=== PATIENT | female | born 1965 | race Caucasian/White ===

== ENCOUNTER 2018-08-24 19:18 | Inpatient (IN) ==
--- NOTE | 2018-08-24 21:04 | ED ---
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 She reports that they started on her buttock area and drained yellow drainage. She reports that she has one on the left lateral thigh that also began a week ago and has not drained. She reports that they are tender to the touch. She incidentally also reports that for the last week she has had a cough and congestion. She reports that the cough was initially streaks of blood. She reports that now the cough is productive of a thick white sputum. Patient reports that she had a leftover prescription for ciprofloxacin and started taking this medication for about the skin lesions in the cough. The patient's past medical history is complicated by having a PICC line in place that was accidentally dislodged 5 days ago. She was not receiving any medication through the PICC line as this was discontinued by her infectious disease doctor in [place] sometime in July. The patient reports that she was supposed to be on antibiotic from May through August 31 related to a discitis and osteomyelitis of her back. She denies having any known fevers. She reports having generalized body aches. She denies having any worsening or recurrent back pain. The patient denies any recent IV drug use. She reports that in the past she was just "experimenting". The patient has a history of diabetes mellitus. She ran out of her diabetic medication yesterday. On review of systems otherwise, the patient denies having any neck pain, chest pain, abdominal pain, vomiting, urinary symptoms, or neurologic symptoms. The patient reports having onset of diarrhea yesterday. She reports that she has had 7 episodes since onset. She denies having any blood in her stool. The patient reports on review of systems that she does have some dyspnea on exertion. Related Data Home Medications Medication Instructions Recorded Confirmed metformin 1,000 mg PO BID 08/24/18 08/24/18 Allergies Allergy/AdvReac Type Severity Reaction Status Date / Time No Known Allergies Allergy Verified 08/24/18 19:39 Review of Systems ROS: all other systems reviewed are negative PMFSH History History Provided By: Patient Family History Family History Other Family history unknown Social History Social History Substance History: Past History Second Hand Smoke Exposure: Yes Smoking Status: Current every day smoker Tobacco Type: Cigarettes Packs Per Day: 0.5 Cigarettes Per Day: 10.0 How Often Do You Have a Drink Containing Alcohol: Never Recent Travel in [facility] within the Last 8 Weeks: No Recent Out of Country Travel within the Last 8 Weeks: No Exam Const General: cooperative, no acute distress and well developed Nutritional Appearance: well nourished Orientation: alert, awake and oriented x3 HENMT Head: normocephalic and atraumatic Nose: no nasal discharge and no epistaxis Mouth: moist mucous membranes Throat: uvula midline and other (Posterior oropharynx is mildly erythematous) Eyes Sclera: normal sclerae Pupils: PERRL Neck Neck: trachea midline and no JVD Resp Effort & Inspection: no use of accessory muscles Auscultation: clear to auscultation bilaterally Cardio Rate: tachycardic (Sinus tachycardia in the low 100s. No pulse deficits to the extremities on simultaneous auscultation and palpation of her radial artery) Rhythm: regular rhythm Heart Sounds: no gallops, murmur (1/6 systolic murmur.) systolic and no rubs GI Inspection: non-distended Palpation: soft, no hepatosplenomegaly, no guarding, not rigid and nontender Auscultation: normal bowel sounds Skin General: dry skin (warm) and other (The patient is noted to have track vigil. The patient is noted to have a palpable nodule along the dorsal aspect of the forearm right side. The patient is noted to have an erythematous firm nodule along the lateral aspect of the left thigh. No Janeway lesions are noted. No Osler's nodes. The patient has healing crusted areas along the buttock area.) Neuro General: alert, awake, oriented x3 and other (Grossly nonfocal) Speech: speech normal Motor: no movement abnormalities noted Extrem General: normal to inspection (2+ pulses in all 4 extremities.), no calf tenderness, no clubbing, no cyanosis and no edema Psych Mood: congruent mood Affect: normal affect Judgment: judgment good Course Initial Documented Vital Signs Temperature 97.8 F 08/24/18 19:34 Pulse Rate 101 H 08/24/18 19:34 Respiratory Rate 20 08/24/18 19:34 Blood Pressure 121/57 L 08/24/18 19:34 Pulse Oximetry 96 08/24/18 19:34 Last Documented Vital Signs Temperature 97.8 F 08/24/18 19:34 Pulse Rate 93 H 08/24/18 23:39 Respiratory Rate 16 08/24/18 23:39 Blood Pressure 100/56 L 08/24/18 23:39 Pulse Oximetry 95 08/24/18 23:39 Medical Decision Making MDM Narrative Medical decision making narrative: During the course of the patient's emergency department visit, the patient's history, examination, and differential diagnosis were reviewed with the patient. The patient was placed on a clinical radiologist with oximetry and frequent blood pressure monitoring. The patient had IV access obtained and blood work sent for analysis. A diagnostic evaluation was started regarding the patient's reported skin lesions, cough, dyspnea on exertion. The patient was initially provided normal saline 1 L IV fluid bolus, Zosyn 3.375 g IV, vancomycin 1 g IV. Diagnostic studies are remarkable for a normal white count at 13.3, hemoglobin 11.5, platelets 428 with 85.7 neutrophils, lymphocytes 7.3, PT PTT within normal limits, chemistries remarkable for sodium of 123, chloride 90, glucose 431 with a normal anion gap, lactic acid 2.4, alk phos 132, cardiac enzymes within normal limits, normal BNP, lipase is slightly elevated at 405. Urinalysis shows 100 protein 10 WBCs, 2 RBCs, 1 squamous epithelial cell, culture not indicated, urine drug screen is negative, chest x-ray shows patchy airspace disease in both the right and the left lungs suspicious for possible septic emboli. A CTA has been ordered. The patient was given regular insulin 9 units subcutaneously, the patient was given a second normal saline 500 mL bolus x1. CTA of the pulmonary arteries reveals multiple masslike consolidative changes throughout both lungs most suspicious for inflammatory process such as septic emboli. The patient will be admitted to the hospital for suspected septic emboli related to endocarditis. The patient's case including history, pertinent physical examination findings, and laboratory studies were discussed with Dr. Andino. It was agreed that the patient would be admitted to the hospitalist service. The patient's results were discussed with the patient, including the plan of care. I explained that further testing and/ or monitoring is indicated based on the patient's history, examination, and/ or laboratory findings. Therefore, I recommended admission for additional evaluation. The patient expressed understanding and was agreeable with this plan. The patient was admitted to the hospital in guarded condition and sent to a bed under the care of the [facility] service. Medical Screen Exam Complete: Yes Emergency Medical Condition: Yes Differential Diagnosis Differential Diagnosis: Bacteremia, versus sepsis, versus endocarditis, versus pneumonia Medical Records Medical records reviewed: Yes I reviewed the patient's medical records. Lab Data Lab results reviewed: Yes I reviewed the patient's lab results. Result diagrams: 08/24/18 21:15 08/24/18 21:15 Lab Results 08/24/18 08/24/18 08/24/18 Range/Units 21:15 21:15 21:15 WBC 13.3 H (4.0-11.0) th/mm3 RBC 4.33 (4.00-5.30) mil/mm3 Hgb 11.5 L (11.6-15.3) gm/dL Hct 35.7 (35.0-46.0) % MCV 82.6 (80.0-100.0) fL MCH 26.7 L (27.0-34.0) pg MCHC 32.3 (32.0-36.0) % RDW 17.3 H (11.6-17.2) % Plt Count 428 (150-450) th/mm3 MPV 7.0 (7.0-11.0) fL Neut % (Auto) 85.7 H (16.0-70.0) % Lymph % (Auto) 7.3 L (9.0-44.0) % Cooper % (Auto) 6.0 (0.0-8.0) % Eos % (Auto) 0.6 (0.0-4.0) % Baso % (Auto) 0.4 (0.0-2.0) % Neut # (Auto) 11.4 H (1.8-7.7) th/mm3 Lymph # (Auto) 1.0 (1.0-4.8) th/mm3 Cooper # (Auto) 0.8 (0.0-0.9) th/mm3 Eos # (Auto) 0.1 (0.0-0.4) th/mm3 Baso # (Auto) 0.0 (0.0-0.2) th/mm3 WBC Differential . Differential Comment Auto diff final PT 10.8 (9.8-11.6) sec INR 1.1 Ratio APTT 28.7 (23.4-31.7) sec Sodium 123 L* (136-145) meq/L Potassium 4.2 (3.5-5.1) meq/L Chloride 90 L (98-107) meq/L Carbon Dioxide 24.7 (21.0-32.0) meq/L Anion Gap 8 (5-15) meq/L BUN 11 (7-18) mg/dL Creatinine 0.87 (0.50-1.00) mg/dL Estimated GFR 69 L (>89) mL/min POC Glucose (68-110) mg/dl Random Glucose 431 H (74-106) mg/dL Lactic Acid (0.4-2.0) mmol/L Calcium 8.5 (8.5-10.1) mg/dL Magnesium 1.8 (1.5-2.5) mg/dL Total Bilirubin 0.6 (0.2-1.0) mg/dL AST 29 (15-37) U/L ALT 41 (10-53) U/L Alkaline Phosphatase 132 H (45-117) U/L Total Creatine Kinase 12 L (26-192) U/L Troponin I Less than 0.02 L (0.02-0.05) ng/mL B-Natriuretic Peptide (0-100) pg/mL Total Protein 7.9 (6.4-8.2) g/dL Albumin 2.2 L (3.4-5.0) g/dL Lipase 405 H (73-393) U/L Urine Color (Yellw/Straw) Urine Clarity (Clear) Urine pH (5.0-8.5) Ur Specific [place] (1.002-1.035) Urine Protein (Neg-Trace) mg/dL Urine Glucose (UA) (Negative) mg/dL Urine Ketones (Negative) mg/dL Urine Occult Blood (Negative) Urine Nitrate (Negative) Urine Bilirubin (Negative) Urine Urobilinogen (Less than 2) mg/dL Ur Leukocyte Esterase (Negative) Urine RBC (0-3) /hpf Urine WBC (0-5) /hpf Ur Squamous Epith Cells (0-5) /hpf Micro UA Comment Ur Microscopic Review Urine Culture Comments Urine Opiates Screen (Neg) Ur Barbiturates Screen (Neg) Ur Amphetamines Screen (Neg) U Benzodiazepines Scrn (Neg) Urine Cocaine Screen (Neg) U Cannabinoids Screen (Neg) 08/24/18 08/24/18 08/24/18 Range/Units 21:15 21:15 21:24 WBC (4.0-11.0) th/mm3 RBC (4.00-5.30) mil/mm3 Hgb (11.6-15.3) gm/dL Hct (35.0-46.0) % MCV (80.0-100.0) fL MCH (27.0-34.0) pg MCHC (32.0-36.0) % RDW (11.6-17.2) % Plt Count (150-450) th/mm3 MPV (7.0-11.0) fL Neut % (Auto) (16.0-70.0) % Lymph % (Auto) (9.0-44.0) % Cooper % (Auto) (0.0-8.0) % Eos % (Auto) (0.0-4.0) % Baso % (Auto) (0.0-2.0) % Neut # (Auto) (1.8-7.7) th/mm3 Lymph # (Auto) (1.0-4.8) th/mm3 Cooper # (Auto) (0.0-0.9) th/mm3 Eos # (Auto) (0.0-0.4) th/mm3 Baso # (Auto) (0.0-0.2) th/mm3 WBC Differential Differential Comment PT (9.8-11.6) sec INR Ratio APTT (23.4-31.7) sec Sodium (136-145) meq/L Potassium (3.5-5.1) meq/L Chloride (98-107) meq/L Carbon Dioxide (21.0-32.0) meq/L Anion Gap (5-15) meq/L BUN (7-18) mg/dL Creatinine (0.50-1.00) mg/dL Estimated GFR (>89) mL/min POC Glucose (68-110) mg/dl Random Glucose (74-106) mg/dL Lactic Acid 2.4 H (0.4-2.0) mmol/L Calcium (8.5-10.1) mg/dL Magnesium (1.5-2.5) mg/dL Total Bilirubin (0.2-1.0) mg/dL AST (15-37) U/L ALT (10-53) U/L Alkaline Phosphatase (45-117) U/L Total Creatine Kinase (26-192) U/L Troponin I (0.02-0.05) ng/mL B-Natriuretic Peptide 39 (0-100) pg/mL Total Protein (6.4-8.2) g/dL Albumin (3.4-5.0) g/dL Lipase (73-393) U/L Urine Color (Yellw/Straw) Urine Clarity (Clear) Urine pH (5.0-8.5) Ur Specific [place] (1.002-1.035) Urine Protein (Neg-Trace) mg/dL Urine Glucose (UA) (Negative) mg/dL Urine Ketones (Negative) mg/dL Urine Occult Blood (Negative) Urine Nitrate (Negative) Urine Bilirubin (Negative) Urine Urobilinogen (Less than 2) mg/dL Ur Leukocyte Esterase (Negative) Urine RBC (0-3) /hpf Urine WBC (0-5) /hpf Ur Squamous Epith Cells (0-5) /hpf Micro UA Comment Ur Microscopic Review Urine Culture Comments Urine Opiates Screen Neg (Neg) Ur Barbiturates Screen Neg (Neg) Ur Amphetamines Screen Neg (Neg) U Benzodiazepines Scrn Neg (Neg) Urine Cocaine Screen Neg (Neg) U Cannabinoids Screen Neg (Neg) 08/24/18 08/24/18 Range/Units 21:24 22:44 WBC (4.0-11.0) th/mm3 RBC (4.00-5.30) mil/mm3 Hgb (11.6-15.3) gm/dL Hct (35.0-46.0) % MCV (80.0-100.0) fL MCH (27.0-34.0) pg MCHC (32.0-36.0) % RDW (11.6-17.2) % Plt Count (150-450) th/mm3 MPV (7.0-11.0) fL Neut % (Auto) (16.0-70.0) % Lymph % (Auto) (9.0-44.0) % Cooper % (Auto) (0.0-8.0) % Eos % (Auto) (0.0-4.0) % Baso % (Auto) (0.0-2.0) % Neut # (Auto) (1.8-7.7) th/mm3 Lymph # (Auto) (1.0-4.8) th/mm3 [place] # (Auto) (0.0-0.9) th/mm3 Eos # (Auto) (0.0-0.4) th/mm3 Baso # (Auto) (0.0-0.2) th/mm3 WBC Differential Differential Comment PT (9.8-11.6) sec INR Ratio APTT (23.4-31.7) sec Sodium (136-145) meq/L Potassium (3.5-5.1) meq/L Chloride (98-107) meq/L Carbon Dioxide (21.0-32.0) meq/L Anion Gap (5-15) meq/L BUN (7-18) mg/dL Creatinine (0.50-1.00) mg/dL Estimated GFR (>89) mL/min POC Glucose 476 H* (68-110) mg/dl Random Glucose (74-106) mg/dL Lactic Acid (0.4-2.0) mmol/L Calcium (8.5-10.1) mg/dL Magnesium (1.5-2.5) mg/dL Total Bilirubin (0.2-1.0) mg/dL AST (15-37) U/L ALT (10-53) U/L Alkaline Phosphatase (45-117) U/L Total Creatine Kinase (26-192) U/L Troponin I (0.02-0.05) ng/mL B-Natriuretic Peptide (0-100) pg/mL Total Protein (6.4-8.2) g/dL Albumin (3.4-5.0) g/dL Lipase (73-393) U/L Urine Color Yellow (Yellw/Straw) Urine Clarity Hazy H (Clear) Urine pH 6.0 (5.0-8.5) Ur Specific [place] 1.020 (1.002-1.035) Urine Protein 100 H (Neg-Trace) mg/dL Urine Glucose (UA) 500 or greater (Negative) mg/dL Urine Ketones Negative (Negative) mg/dL Urine Occult Blood Negative (Negative) Urine Nitrate Negative (Negative) Urine Bilirubin Negative (Negative) Urine Urobilinogen Less than 2 (Less than 2) mg/dL Ur Leukocyte Esterase Negative (Negative) Urine RBC 2 (0-3) /hpf Urine WBC 10 H (0-5) /hpf Ur Squamous Epith Cells 1 (0-5) /hpf Micro UA Comment Culture not ind Ur Microscopic Review Not Reportable Urine Culture Comments Culture not ind Urine Opiates Screen (Neg) Ur Barbiturates Screen (Neg) Ur Amphetamines Screen (Neg) U Benzodiazepines Scrn (Neg) Urine Cocaine Screen (Neg) U Cannabinoids Screen (Neg) Imaging Data Radiologist's impression: Chest X-Ray 08/24/18 20:59 CONCLUSION: Markedly abnormal chest. Considerations include inflammatory process such as septic emboli or metastatic disease. CT scan of the chest with contrast would be of benefit Chest CTA 08/24/18 21:35 CONCLUSION: 1. Multiple masslike consolidative changes throughout both lungs most suspicious for inflammatory process. 2. There is minimal AP window adenopathy. 3. Trace pleural effusion is present on the left. ECG Data Attestation: I personally reviewed and interpreted this ECG as follows: Interpretation: The patient had an EKG done on arrival. The patient's EKG reveals a sinus tachycardia rate of 100, QRS duration is 130 ms with a moderate intraventricular conduction delay, QTC is 402 ms, no acute ST segment elevation per T waves are inverted in V1. Discharge Plan Discharge Disposition Patient Disposition: ED Admit(ED Internal Use Only) Discharge Order Discharge Orders: ED Use Only Admit Order (Routine); Ordered 08/24/18 Ordered By: Zara Das Discharge Details Diagnosis: Septic embolism Physicians Team ED Provider: Zara Das Primary Care Provider: UNKNOWN, Attending Provider: Stephanie Andino Other Providers: Kia Zarate Status ED Status: Admitted Patient
--- NOTE | 2018-08-24 21:16 | XR ---
EXAM DATE: 08/24/2018 9:13 PM EST AGE/SEX: 53 years / Female INDICATIONS: Fever. CLINICAL DATA: This is the patient's initial encounter. Patient reports that signs and symptoms have been present for 1 day and indicates a pain score of 4/10. MEDICAL/SURGICAL HISTORY: Osteomyelitis. Diabetes mellitus type II. Smoker. Discitis. None. COMPARISON: No prior exams available for comparison. FINDINGS: Study is abnormal with patchy airspace disease in both the right and left lungs. There is no pleural effusion. Some of these have a nodular appearance and could either be septic emboli or metastatic dis ease. There is no pleural effusion. The portion of the bony skeleton visualized is unremarkable. CONCLUSION: Markedly abnormal chest. Considerations include inflammatory process such as septic emboli or metasta tic disease. CT scan of the chest with contrast would be of benefit Electronically signed by: Rj Winter MD Board Certified Radiologist 08/24/2018 9:15 PM EST
[2018-08-24 21:34] LABS: Baso % (Auto) 0.4 % (0.0-2.0); Eos # (Auto) 0.1 th/mm3 (0.0-0.4); Eos % (Auto) 0.6 % (0.0-4.0); Hematocrit 35.7 % (35.0-46.0); Hemoglobin 11.5 gm/dL (11.6-15.3); Lymph % (Auto) 7.3 % (9.0-44.0); Mean Corpuscular HGB Conc 32.3 % (32.0-36.0); Mean Corpuscular Hemoglobin 26.7 pg (27.0-34.0); Mean Corpuscular Volume 82.6 fL (80.0-100.0); Mono # (Auto) 0.8 th/mm3 (0.0-0.9); Neut # (Auto) 11.4 th/mm3 (1.8-7.7); Neut % (Auto) 85.7 % (16.0-70.0); Platelet Count 428 th/mm3 (150-450); Red Blood Count 4.33 mil/mm3 (4.00-5.30); Red Cell Distribution Width 17.3 % (11.6-17.2); White Blood Count 13.3 th/mm3 (4.0-11.0)
[2018-08-24] MEDS ORDERED: Vancomycin Inj 1,000 MG in Sodium Chlor 0.9% Inj 250 ML IV.SIG ONE (21:35)
[2018-08-24] MEDS ORDERED: Sod Chloride 0.9% Inj 1,000 ML IV.SIG ONE (21:35)
[2018-08-24] MEDS ORDERED: Piperacil/Tazo 3.375 GM Premix 3.375 GM/50 ML PIGGYBACK IV.SIG ONE (21:35)
[2018-08-24 21:44] LABS: Activated Partial Thrombo Time 28.7 sec (23.4-31.7); INR 1.1 Ratio; Prothrombin Time 10.8 sec (9.8-11.6)
[2018-08-24 21:50] LABS: Bilirubin,Urine Negative (Negative); Clarity,Urine Hazy (Clear); Color,Urine Yellow (Yellw/Straw); Glucose,Urine (UA) 500 or Greater mg/dL (Negative); Leukocyte Esterase,Urine Negative (Negative); Nitrite,Urine Negative (Negative); Squamous Epithelial Cell,Urine 1 /hpf (0-5)
[2018-08-24 21:53] LABS: Amphetamine Screen,Urine Neg (Neg); Barbiturate Screen,Urine Neg (Neg); Cannabinoid Screen,Urine Neg (Neg); Cocaine Screen,Urine Neg (Neg)
[2018-08-24 21:58] LABS: Opiate Screen,Urine Neg (Neg)
[2018-08-24 22:17] LABS: Alanine Aminotransferase 41 U/L (10-53); Albumin 2.2 g/dL (3.4-5.0); Alkaline Phosphatase 132 U/L (45-117); Anion Gap 8 meq/L (5-15); Aspartate Aminotransferase 29 U/L (15-37); Blood Urea Nitrogen 11 mg/dL (7-18); Calcium 8.5 mg/dL (8.5-10.1); Carbon Dioxide 24.7 meq/L (21.0-32.0); Chloride 90 meq/L (98-107); Glomerular Filtration Rate 69 mL/min (>89); Glucose,Random 431 mg/dL (74-106); Lipase 405 U/L (73-393); Magnesium 1.8 mg/dL (1.5-2.5); Potassium 4.2 meq/L (3.5-5.1); Total Protein 7.9 g/dL (6.4-8.2)
[2018-08-24 22:19] LABS: Creatine Kinase 12 U/L (26-192)
[2018-08-24 22:22] LABS: Sodium 123 meq/L (136-145)
[2018-08-24] MEDS ORDERED: Sodium Chlor 0.9% Inj 500 ML IV.SIG ONE (22:29)
--- NOTE | 2018-08-24 22:56 | CT ---
EXAM DATE: 08/24/2018 10:41 PM EST AGE/SEX: 53 years / Female INDICATIONS: Cough, abnormal chest xray. CLINICAL DATA: This is the patient's initial encounter. Patient reports that signs and symptoms have been present for 1 day and indicates a pain score of 4/10. MEDICAL/SURGICAL HISTORY: Diabetes. Osteomyelitis. Hysterectomy. Tubal ligation. RADIATION DOSE: 7.25 CTDI (mGy) COMPARISON: No prior exams available for comparison. TECHNIQUE: Volumetric scanning was performed using a multi-row detector CT scanner during bolus infu armando of 75 ml Omnipaque 350 (iohexol) nonionic water-soluble contrast as a single exam dose. The handy a was post processed with a variety of visualization algorithms including full volume maximum intensi ty projection and sliding thin slab reformation. Using automated exposure control and adjustment of t he mA and/or kV according to patient size, radiation dose was kept as low as reasonably achievable to obtain optimal diagnostic quality images. DICOM format image data is available electronically for r eview and comparison. FINDINGS: Multiple masslike consolidative changes are seen throughout both lungs some of which contain central cavitation this is suspicious for septic inflammatory process. There is no evidence for central pulmonary emboli. Minimal AP window adenopathy is present. Trace left pleural effusion. No pleural effusion on the right. There is no bony abnormality appreciated. CONCLUSION: 1. Multiple masslike consolidative changes throughout both lungs most suspicious for inflammatory pr ocess. 2. There is minimal AP window adenopathy. 3. Trace pleural effusion is present on the left. Electronically signed by: Rj Winter MD Board Certified Radiologist 08/24/2018 10:54 PM EST
[2018-08-24] MEDS ORDERED: Bisacodyl 10 MG Supp RECTAL PRN (23:22)
[2018-08-24] MEDS ORDERED: Acetaminophen 325 MG Tablet PO PRN (23:22)
[2018-08-24] MEDS ORDERED: Vancomycin Consult Pharmacy OTHER PRN (23:24)
[2018-08-24] MEDS ORDERED: Dextrose 50% in Water 50 ML Vial IV.PUSH PRN (23:27)
[2018-08-24] MEDS ORDERED: Sod Chloride 0.9% Inj 1,000 ML IV.CONT SCH (23:30)
--- NOTE | 2018-08-24 23:40 | P.HP ---
History of Present Illness Service: [facility] Primary Care Physician: UNKNOWN History of Present Illness: 53-year-old female with a past medical history significant for diabetes mellitus , IV drug abuse and recent treatment of thoracic spine osteomyelitis/discitis presents to the emergency department for further evaluation. The patient reports that in April 2018 she was diagnosed and treated for osteomyelitis and discitis of the thoracic spine. She believes she was treated with vancomycin. A PICC line was placed and she was supposed to be on antibiotic infusion until 08/31/18 however secondary to renal failure her vancomycin was discontinued. She was unable to see her infectious disease doctor until 08/27 because he is out of town and came to [place] for further evaluation. The patient also complains of red, painful, erythematous nodules on the left leg, right forearm and in the labial and buttock regions. She denies any fevers/ chills. Denies chest pain but endorses shortness of breath and a cough productive of thick white sputum. Reports that on Thursday her PICC line fell out. The patient reports last IV drug use was heroin yesterday. No abdominal pain. No nausea/vomiting/diarrhea. No focal neurologic deficits. Inpatient Certification: I certify that the inpatient services were ordered in accordance with Medicare regulations governing the order. This includes certification that hospital inpatient services are reasonable and necessary and in the case of services not specified as inpatient-only under 42 CFR 419.22(n), that they are appropriately provided as inpatient services in accordance to with the 2-midnight benchmark under 43 CFR 412.3(e) Review of Systems All other systems reviewed negative except as stated in [facility] - History History Provided By: Patient - Medical History Medical History: Medical History (Last Reviewed 08/24/18 @ 23:30 by Stephanie Andino MD) Diabetes Discitis H/O: hysterectomy Osteomyelitis - Surgical History Surgical History: Surgical History (Last Reviewed 08/24/18 @ 23:30 by Stephanie Andino MD) History of knee surgery History of tubal ligation - Family History Family History: Family History (Last Updated 08/24/18 @ 23:30 by Stephanie Andino MD) Other Family history unknown - Social History I have reviewed the patient's Social History: Yes - Tobacco History Second Hand Smoke Exposure: Yes Tobacco Use In Past 30 Days: Yes Smoking Status: Current every day smoker Tobacco Type: Cigarettes Packs Per Day: 0.5 Cigarettes Per Day: 10.0 - Alcohol History How Often Do You Have a Drink Containing Alcohol: Never - Substance Use History Substance History: Past History - Travel History Recent Travel in the [place] Within the Last 8 Weeks: No Recent Travel Out of the Country Within the Last 8 Weeks: No - Immunization History Tetanus Immunization: Unsure Medications and Allergies Allergies Allergy/AdvReac Type Severity Reaction Status Date / Time No Known Allergies Allergy Verified 08/24/18 19:39 Home Medications Medication Instructions Recorded Confirmed Type metformin 1,000 mg PO BID 08/24/18 08/24/18 History Exam Vital signs: Vital Signs 08/24/18 19:34 08/24/18 21:01 08/24/18 21:15 Temperature 97.8 F Pulse Rate 101 H 103 H Respiratory Rate 20 16 Blood Pressure 121/57 L 109/59 L Pulse Oximetry 96 94 L 95 Intake & Output 08/24/18 08/24/18 08/25/18 06:59 18:59 06:59 Intake Total 1050 / 1050 Balance 1050 / 1050 Weight 63.503 kg Intake: IV 1050 / 1050 Zosyn 3.375 GM Premix 3.375 gm 50 / 50 In 50 ml @ 100 mls/hr IV.SIG ONCE ONE Rx#:[id number] NS Inj 1,000 ML @ Wide Open IV. 1000 / 1000 SIG BOLUS ONE Rx#:[id number] Narrative: Gen.: No acute distress Head: Normocephalic. Atraumatic. EENT: Pupils equal round and reactive to light. Nose without drainage. Airway intact. Throat without injection. Cardiovascular: Regular rate and rhythm. No murmurs, rubs or gallops. Respiratory: Lungs clear to auscultation bilaterally. No wheezes or rhonchi. Abdomen: Soft, nontender, nondistended. No peritoneal signs. Musculoskeletal: No gross deformities. No edema. Skin: Multiple, painful erythematous nodules of the right forearm, left lower extremity and labia/buttock Neuro: Sensory and motor grossly intact. Cranial nerves II through XII grossly intact. Results - Labs CBC & Chem 7: 08/24/18 21:15 08/24/18 21:15 Labs: Laboratory Results - last 24 hr 08/24/18 08/24/18 08/24/18 21:15 21:15 21:15 WBC 13.3 H RBC 4.33 Hgb 11.5 L Hct 35.7 MCV 82.6 MCH 26.7 L MCHC 32.3 RDW 17.3 H Plt Count 428 MPV 7.0 Neut % (Auto) 85.7 H Lymph % (Auto) 7.3 L [place] % (Auto) 6.0 Eos % (Auto) 0.6 Baso % (Auto) 0.4 Neut # (Auto) 11.4 H Lymph # (Auto) 1.0 [place] # (Auto) 0.8 Eos # (Auto) 0.1 Baso # (Auto) 0.0 WBC Differential . Differential Comment Auto diff final PT 10.8 INR 1.1 APTT 28.7 Sodium 123 L* Potassium 4.2 Chloride 90 L Carbon Dioxide 24.7 Anion Gap 8 BUN 11 Creatinine 0.87 Estimated GFR 69 L POC Glucose Random Glucose 431 H Lactic Acid Calcium 8.5 Magnesium 1.8 Total Bilirubin 0.6 AST 29 ALT 41 Alkaline Phosphatase 132 H Total Creatine Kinase 12 L Troponin I Less than 0.02 L B-Natriuretic Peptide Total Protein 7.9 Albumin 2.2 L Lipase 405 H Urine Color Urine Clarity Urine pH Ur Specific [place] Urine Protein Urine Glucose (UA) Urine Ketones Urine Occult Blood Urine Nitrate Urine Bilirubin Urine Urobilinogen Ur Leukocyte Esterase Urine RBC Urine WBC Ur Squamous Epith Cells Micro UA Comment Ur Microscopic Review Urine Culture Comments Urine Opiates Screen Ur Barbiturates Screen Ur Amphetamines Screen U Benzodiazepines Scrn Urine Cocaine Screen U Cannabinoids Screen 08/24/18 08/24/18 08/24/18 21:15 21:15 21:24 WBC RBC Hgb Hct MCV MCH MCHC RDW Plt Count MPV Neut % (Auto) Lymph % (Auto) [place] % (Auto) Eos % (Auto) Baso % (Auto) Neut # (Auto) Lymph # (Auto) [place] # (Auto) Eos # (Auto) Baso # (Auto) WBC Differential Differential Comment PT INR APTT Sodium Potassium Chloride Carbon Dioxide Anion Gap BUN Creatinine Estimated GFR POC Glucose Random Glucose Lactic Acid 2.4 H Calcium Magnesium Total Bilirubin AST ALT Alkaline Phosphatase Total Creatine Kinase Troponin I B-Natriuretic Peptide 39 Total Protein Albumin Lipase Urine Color Urine Clarity Urine pH Ur Specific [place] Urine Protein Urine Glucose (UA) Urine Ketones Urine Occult Blood Urine Nitrate Urine Bilirubin Urine Urobilinogen Ur Leukocyte Esterase Urine RBC Urine WBC Ur Squamous Epith Cells Micro UA Comment Ur Microscopic Review Urine Culture Comments Urine Opiates Screen Neg Ur Barbiturates Screen Neg Ur Amphetamines Screen Neg U Benzodiazepines Scrn Neg Urine Cocaine Screen Neg U Cannabinoids Screen Neg 08/24/18 08/24/18 21:24 22:44 WBC RBC Hgb Hct MCV MCH MCHC RDW Plt Count MPV Neut % (Auto) Lymph % (Auto) [place] % (Auto) Eos % (Auto) Baso % (Auto) Neut # (Auto) Lymph # (Auto) [place] # (Auto) Eos # (Auto) Baso # (Auto) WBC Differential Differential Comment PT INR APTT Sodium Potassium Chloride Carbon Dioxide Anion Gap BUN Creatinine Estimated GFR POC Glucose 476 H* Random Glucose Lactic Acid Calcium Magnesium Total Bilirubin AST ALT Alkaline Phosphatase Total Creatine Kinase Troponin I B-Natriuretic Peptide Total Protein Albumin Lipase Urine Color Yellow Urine Clarity Hazy H Urine pH 6.0 Ur Specific [place] 1.020 Urine Protein 100 H Urine Glucose (UA) 500 or greater Urine Ketones Negative Urine Occult Blood Negative Urine Nitrate Negative Urine Bilirubin Negative Urine Urobilinogen Less than 2 Ur Leukocyte Esterase Negative Urine RBC 2 Urine WBC 10 H Ur Squamous Epith Cells 1 Micro UA Comment Culture not ind Ur Microscopic Review Not Reportable Urine Culture Comments Culture not ind Urine Opiates Screen Ur Barbiturates Screen Ur Amphetamines Screen U Benzodiazepines Scrn Urine Cocaine Screen U Cannabinoids Screen - Imaging Impressions Chest X-Ray 08/24/18 20:59 CONCLUSION: Markedly abnormal chest. Considerations include inflammatory process such as septic emboli or metastatic disease. CT scan of the chest with contrast would be of benefit Chest CTA 08/24/18 21:35 CONCLUSION: 1. Multiple masslike consolidative changes throughout both lungs most suspicious for inflammatory process. 2. There is minimal AP window adenopathy. 3. Trace pleural effusion is present on the left. Caprini VTE Risk Assessment Caprini VTE Risk Assessment: No/Low Risk (score <= 1) Caprini Risk Assessment Model: Point Value = 1 Point Value = 2 Point Value = 3 Point Value = 5 Age 41-60 Minor surgery BMI > 25 kg/m2 Swollen legs Varicose veins or History of unexplained or recurrent spontaneous Oral contraceptives or hormone replacement Sepsis (< 1 month) Serious lung disease, including pneumonia (< 1 month) Abnormal pulmonary function Acute myocardial infarction Congestive heart failure (< 1 month) History of inflammatory bowel disease Medical patient at bed rest Age 61-74 Arthroscopic surgery Major open surgery (> 45 min) Laparoscopic surgery (> 45 min) Malignancy Confined to bed (> 72 hours) Immobilizing plaster cast Central venous access Age >= 75 History of VTE Family history of VTE Factor V Leiden Prothrombin [id number] Lupus anticoagulant Anticardiolipin antibodies Elevated serum homocysteine Heparin-induced thrombocytopenia Other congenital or acquired thrombophilia Stroke (< 1 month) Elective arthroplasty Hip, pelvis, or leg fracture Acute spinal cord injury (< 1 month) Prophylaxis Regimen: Total Risk Factor Score Risk Level Prophylaxis Regimen 0-1 Low Early ambulation 2 Moderate Order ONE of the following: *Sequential Compression Device (SCD) *Heparin 5000 units SQ BID 3-4 Higher Order ONE of the following medications: *Heparin 5000 units SQ TID *Enoxaparin/Lovenox 40 mg SQ daily (WT < 150 kg, CrCl > 30 mL/min) *Enoxaparin/Lovenox 30 mg SQ daily (WT < 150 kg, CrCl > 10-29 mL/min) *Enoxaparin/Lovenox 30 mg SQ BID (WT < 150 kg, CrCl > 30 mL/min) AND/OR *Sequential Compression Device (SCD) 5 or more Highest Order ONE of the following medications: *Heparin 5000 units SQ TID (Preferred with Epidurals) *Enoxaparin/Lovenox 40 mg SQ daily (WT < 150 kg, CrCl > 30 mL/min) *Enoxaparin/Lovenox 30 mg SQ daily (WT < 150 kg, CrCl > 10-29 mL/min) *Enoxaparin/Lovenox 30 mg SQ BID (WT < 150 kg, CrCl > 30 mL/min) AND *Sequential Compression Device (SCD) Assessment and Plan - Plan Assessment/plan: 1. Sepsis/? Endocarditis/osteomyelitis/discitis Patient reports diagnosis of osteomyelitis/discitis of the thoracic spine in April 2018. Currently endorses back pain but denies any neurologic deficits Chest CT showed multiple masslike consolidative changes throughout both lungs concerning for endocarditis Blood cultures pending Echo pending Vancomycin/Zosyn Infectious disease consulted, appreciate assistance 2. Diabetes mellitus/hyperglycemia Patient reports she was diagnosed with type 2 diabetes mellitus in April 2018 Takes metformin at home Blood glucose 476 Sliding-scale insulin Monitor blood glucose 3. IV drug abuse Patient admits to doing IV heroin although states that she "does not do it a lot " Last use yesterday Cessation counseling provided 4. Hyponatremia Corrected sodium 132 Monitor FEN Diabetic diet Electrolytes: As above NS at 70 cc/hour
[2018-08-25] MEDS: Ketorolac Inj 30 MG/ML (IVP) Vial IV.PUSH ONE ×2 (03:09→03:29)
[2018-08-25] MEDS: Piperacil/Tazo 3.375 GM Premix 3.375 GM/50 ML PIGGYBACK IV.SIG SCH ×4 (03:34→21:13)
[2018-08-25 05:41] LABS: Baso % (Auto) 0.4 % (0.0-2.0); Eos # (Auto) 0.1 th/mm3 (0.0-0.4); Eos % (Auto) 0.9 % (0.0-4.0); Hematocrit 28.4 % (35.0-46.0); Hemoglobin 10.1 gm/dL (11.6-15.3); Lymph # (Auto) 1.2 th/mm3 (1.0-4.8); Lymph % (Auto) 9.9 % (9.0-44.0); Mean Corpuscular HGB Conc 35.4 % (32.0-36.0); Mean Corpuscular Hemoglobin 28.5 pg (27.0-34.0); Mean Corpuscular Volume 80.5 fL (80.0-100.0); Mean Platelet Volume 6.5 fL (7.0-11.0); Mono # (Auto) 0.9 th/mm3 (0.0-0.9); Mono % (Auto) 7.3 % (0.0-8.0); Neut # (Auto) 9.6 th/mm3 (1.8-7.7); Neut % (Auto) 81.5 % (16.0-70.0); Platelet Count 380 th/mm3 (150-450); Red Blood Count 3.53 mil/mm3 (4.00-5.30); Red Cell Distribution Width 17.4 % (11.6-17.2); White Blood Count 11.7 th/mm3 (4.0-11.0)
[2018-08-25 06:00] LABS: Anion Gap 5 meq/L (5-15); Blood Urea Nitrogen 6 mg/dL (7-18); Calcium 8.1 mg/dL (8.5-10.1); Carbon Dioxide 26.8 meq/L (21.0-32.0); Chloride 102 meq/L (98-107); Glomerular Filtration Rate Greater Than 89 mL/min (>89); Glucose,Random 235 mg/dL (74-106); Potassium 3.9 meq/L (3.5-5.1); Sodium 134 meq/L (136-145)
--- NOTE | 2018-08-25 09:12 | P.PNIM ---
Subjective Interval history: Follow-up sepsis. Patient complaining of multiple skin eruptions Physical Exam Vital signs: Vital Signs 08/24/18 19:34 08/24/18 21:01 08/24/18 21:15 Temperature 97.8 F Pulse Rate 101 H 103 H Respiratory Rate 20 16 Blood Pressure 121/57 L 109/59 L Pulse Oximetry 96 94 L 95 08/24/18 23:39 08/25/18 01:00 08/25/18 02:20 Temperature 98.6 F Pulse Rate 93 H 89 85 Respiratory Rate 16 16 16 Blood Pressure 100/56 L 118/55 L 128/68 Pulse Oximetry 95 94 L 96 08/25/18 04:46 08/25/18 08:00 Temperature 97.7 F Pulse Rate 81 80 Respiratory Rate 16 Blood Pressure 120/63 Pulse Oximetry 98 Intake & Output 08/24/18 08/25/18 08/25/18 18:59 06:59 18:59 Intake Total 1850 / 1850 Balance 1850 / 1850 Weight 60.9 kg Intake: IV 1849 1850 Zosyn 3.375 GM Premix 3.375 gm 100 / 100 In 50 ml @ 100 mls/hr IV.SIG Q6H ROSEANNA Rx#:[id number] NS Inj 1,000 ML @ Wide Open IV. 1000 / 1000 SIG BOLUS ONE Rx#:[id number] NS Inj 500 ML @ Wide Open IV. 500 / 500 SIG BOLUS ONE Rx#:[id number] Vancomycin Inj 1,000 MG In NS 250 / 250 Inj 250 ML @ 250 mls/hr IV.SIG ONCE ONE Rx#:[id number] Other: Date of Last Bowel Movement 08/24/18 Weight On Admission 60.9 kg Narrative: Gen.: No acute distress Cardiovascular: Regular rate and rhythm. No murmurs, rubs or gallops. Respiratory: Lungs clear to auscultation bilaterally. No wheezes or rhonchi. Abdomen: Soft, nontender, nondistended. No peritoneal signs. Musculoskeletal: No gross deformities. No edema. Skin: Multiple, painful erythematous nodules of the right forearm, left lower extremity and labia/buttock Neuro: Sensory and motor grossly intact. Cranial nerves II through XII grossly intact. Results Labs CBC & Chem 7: 08/25/18 05:24 08/25/18 05:24 Labs: Microbiology 08/24/18 21:10 Nasal Wash Influenza Types A,B Antigen - Final Negative for FLU A and B antigen Infection due to influenza A or B cannot be ruled out since the antigen present in the sample may be below the detection limit of the test. Imaging Imaging: ITS Impressions Chest X-Ray 08/24/18 20:59 CONCLUSION: Markedly abnormal chest. Considerations include inflammatory process such as septic emboli or metastatic disease. CT scan of the chest with contrast would be of benefit Chest CTA 08/24/18 21:35 CONCLUSION: 1. Multiple masslike consolidative changes throughout both lungs most suspicious for inflammatory process. 2. There is minimal AP window adenopathy. 3. Trace pleural effusion is present on the left. Assessment and Plan Plan 1. Sepsis/? Endocarditis/osteomyelitis/discitis Patient reports diagnosis of osteomyelitis/discitis of the thoracic spine in April 2018. Currently endorses back pain but denies any neurologic deficits Chest CT showed multiple masslike consolidative changes throughout both lungs concerning for septic inflammatory process Blood cultures pending Echo pending Vancomycin/Zosyn Infectious disease consulted, appreciate assistance 2. Diabetes mellitus/hyperglycemia Patient reports she was diagnosed with type 2 diabetes mellitus in April 2018 Takes metformin at home, will resume tomorrow 2 days after contrast Blood glucose 476 Sliding-scale insulin Monitor blood glucose 3. IV drug abuse Patient admits to doing IV heroin although states that she "does not do it a lot " Last use day prior to admission Cessation counseling provided Discussed with family, patient was abusing fentanyl and heroin. Will avoid narcotics. Hydroxyzine for anxiety and Ativan for withdrawal symptoms 4. Hyponatremia Corrected sodium 132 Monitor FEN Diabetic diet Electrolytes: As above Discontinue IV hydration patient has adequate p.o.
[2018-08-25] MEDS: Insulin NovoLOG Aspart Correctional Sugar Inj SQ SCH ×4 (10:51→20:31)
[2018-08-25] MEDS: Vancomycin Inj 1,000 MG in Sodium Chlor 0.9% Inj 250 ML IV.SIG SCH ×2 (12:06→22:52)
[2018-08-25] MEDS ORDERED: Naloxone Inj 0.4 MG/ML Vial IV.PUSH PRN (13:59)
[2018-08-25] MEDS ORDERED: Ketorolac Inj 30 MG/ML (IVP) Vial IV.PUSH PRN ×2 (13:59)
[2018-08-25] MEDS ORDERED: LORazepam 0.5 MG Tablet PO PRN (13:59)
[2018-08-25] MEDS: Ketorolac Inj 30 MG/ML (IVP) Vial IV.PUSH PRN ×3 (16:22→22:52)
[2018-08-25] MEDS: LORazepam 0.5 MG Tablet PO PRN ×2 (16:24→22:51)
--- NOTE | 2018-08-25 18:02 | ECHRPT ---
Indication: POSS SEPSIS, ENDOCARDITIS CONCLUSIONS Normal left ventricular size. Wall thickness is normal. The left ventricular sytolic function is normal with an estimalted ejection fraction in the range of 60-65%. mild mitral valve regurgitation BP: / HR: Rhythm: Sinus MEASUREMENTS (Male / Female) Normal Values Technical Quality:Fair 2D ECHO LV Diastolic Diameter PLAX 4.8 cm 4.2 - 5.9 / 3.9 - 5.3 cm LV Systolic Diameter PLAX 3.4 cm IVS Diastolic Thickness 0.7 cm 0.6 - 1.0 / 0.6 - 0.9 cm LVPW Diastolic Thickness 0.8 cm 0.6 - 1.0 / 0.6 - 0.9 cm LV Relative Wall Thickness 0.3 RV Internal Dim ED PLAX 3.1 cm LVOT Diameter 2.0 cm Aortic Root Diameter 2.4 cm LA Systolic Diameter LX 3.6 cm 3.0 - 4.0 / 2.7 - 3.8 cm M-MODE AV Cusp Separation MM 2.2 cm DOPPLER AV Peak Velocity 150.0 cm/s AV Peak Gradient 9.0 mmHg AV Mean Gradient 4.0 mmHg AV Velocity Time Integral 29.3 cm LVOT Peak Velocity 106.0 cm/s LVOT Peak Gradient 4.5 mmHg LVOT Velocity Time Integral 22.1 cm AV Area Cont Eq vti 2.4 cm AV Area Cont Eq pk 2.2 cm Mitral E Point Velocity 88.4 cm/s Mitral A Point Velocity 74.0 cm/s Mitral E to A Ratio 1.2 LV E' Lateral Velocity 13.3 cm/s Mitral E to LV E' Lateral Ratio 6.6 LV E' Septal Velocity 8.7 cm/s Mitral E to LV E' Septal Ratio 10.2 TR Peak Velocity 246.0 cm/s TR Peak Gradient 24.2 mmHg Right Atrial Pressure 10.0 mmHg Pulmonary Artery Systolic Pressu 34.2 mmHg Right Ventricular Systolic Press 34.2 mmHg PV Peak Velocity 72.9 cm/s PV Peak Gradient 2.1 mmHg FINDINGS LEFT VENTRICLE Normal left ventricular size. Wall thickness is normal. The left ventricular systolic function is normal with an estimated ejection fraction in the range of 60-65%. RIGHT VENTRICLE Normal right ventricular size and systolic function. LEFT ATRIUM The left atrial size is normal. RIGHT ATRIUM The right atrial size is normal. ATRIAL SEPTUM Normal atrial septal thickness without atrial level shunting by limited color doppler interrogation. AORTA The aortic root and proximal ascending aorta are normal in size on limited imaging. MITRAL VALVE Structurally normal mitral valve. No mitral valve stenosis or regurgitation. AORTIC VALVE Trileaflet aortic valve. No aortic valve stenosis or regurgitation. TRICUSPID VALVE Structurally normal tricuspid valve. No tricuspid valve stenosis or regurgitation. PULMONARY VALVE No pulmonary valve regurgitation or stenosis. VESSELS The inferior vena cava is normal in size. PERICARDIUM No pericardial effusion. Demetri Zarate MD, FACC, [facility] [place] ([place]ically Signed[place] Final Date:25 August 2018 18:01
--- NOTE | 2018-08-25 18:53 | P.CONID ---
History of Present Illness Service: ID Consult date: 08/25/18 Requesting Physician: Lore Trejo Reason for Consult: septic emboli Primary Care Provider: UNKNOWN History of Present Illness: 53 yo F denies IV drug use but from the history its clearly positive IV drug use she c/o multiple skin lesions that have been recurring over the last week. Recent h/o PICC line Patient reports that she was supposed to be on antibiotic from May through August 31 related to a discitis and osteomyelitis of her back. She denies having any known fevers. SHe seeningy was not compliant with her abx SHe is on zosyn and vancomycin blood cultures negative @ [address] chest showed multiple lesions cw septic emboli Review of Systems All other systems reviewed negative except as stated in HPI PMFSH - History History Provided By: Patient - Medical History Medical History: Medical History (Last Reviewed 08/26/18 @ 06:59 by Kia Zarate MD) Diabetes Discitis H/O: hysterectomy Osteomyelitis - Surgical History Surgical History: Surgical History (Last Reviewed 08/26/18 @ 06:59 by Kia Zarate MD) History of knee surgery History of tubal ligation - Family History Family History: Family History (Last Reviewed 08/26/18 @ 06:59 by Kia Zarate MD) Other Family history unknown - Social History I have reviewed the patient's Social History: Yes - Tobacco History Second Hand Smoke Exposure: Yes Tobacco Use In Past 30 Days: Yes Smoking Status: Current every day smoker Tobacco Type: Cigarettes Packs Per Day: 0.5 Cigarettes Per Day: 10.0 - Alcohol History How Often Do You Have a Drink Containing Alcohol: Never - Substance Use History Substance History: Past History - Travel History Recent Travel in the [place] Within the Last 8 Weeks: No Recent Travel Out of the Country Within the Last 8 Weeks: No - Immunization History Tetanus Immunization: Unsure Medications and Allergies Active Medications: Active Medications Acetaminophen (Tylenol) 650 mg PO Q4H PRN PRN Reason: Temp > 100.4 Al Hydroxide/Mg Hydroxide (Milk Of Magnesia Liq) 30 ml PO Q12H PRN PRN Reason: Mild Constipation Bisacodyl (Dulcolax Supp) 10 mg RECTAL DAILY PRN PRN Reason: SEVERE CONSITIPATION Dextrose (D50w Vial) 50 ml IV.PUSH UNSCH PRN PRN Reason: PER HYPOGLYCEMIA PROTOCOL Glucagon (Glucagon Inj) 1 mg OTHER PRN PRN PRN Reason: for Hypoglycemia Protocol Hydroxyzine HCl (Atarax) 25 mg PO Q8HR PRN PRN Reason: ANXIETY Last Admin: 08/25/18 16:28 Dose: 25 mg Piperacillin/Tazobactam/Dextrose (Zosyn 3.375 Gm Premix) 3.375 gm in 50 mls @ 100 mls/hr IV.SIG Q6H ROSEANNA Last Admin: 08/25/18 16:32 Dose: 100 mls/hr Vancomycin HCl 1,000 mg/ (Sodium Chloride) 250 mls @ 250 mls/hr IV.SIG Q12H ROSEANNA Last Infusion: 08/25/18 13:10 Dose: Infused Insulin Aspart (Novolog Insulin Correctional Sugar Inj) 0 unit SQ ACHS ROSEANNA; Protocol Last Admin: 08/25/18 16:45 Dose: 4 unit Ketorolac Tromethamine (Toradol Inj) 15 mg IV.PUSH Q6H PRN PRN Reason: PAIN 6-10;IF UNABLE TO TAKE PO Stop: 08/30/18 13:58 Ketorolac Tromethamine (Toradol Inj) 30 mg IV.PUSH Q6H PRN PRN Reason: BREAKTHROUGH PAIN Stop: 08/30/18 13:58 Last Admin: 08/25/18 16:22 Dose: 30 mg Lactulose (Lactulose Liq) 30 ml PO DAILY PRN PRN Reason: SEVERE CONSITIPATION Lorazepam (Ativan) 0.5 mg PO Q6H PRN PRN Reason: withdrawal symptoms/agitation Last Admin: 08/25/18 16:24 Dose: 0.5 mg Miscellaneous Information ([facility] Ordered Lab Info) 0 each OTHER ONCE ONE Stop: 08/26/18 10:46 Naloxone HCl (Narcan Inj) 0.4 mg IV.PUSH UNSCH PRN PRN Reason: SEE LABEL COMMENTS Nicotine (Habitrol 21 Mg Patch.24 Hr) 1 patch T-DERMAL DAILY [facility] Ondansetron HCl (Zofran Inj) 4 mg IV.PUSH Q6H PRN PRN Reason: NAUSEA OR VOMITING Pharmacy Profile Note (Vancomycin Consult Pharmacy) 1 each OTHER UNSCH PRN PRN Reason: Pharmacy to dose Sennosides (Senokot) 17.2 mg PO Q12H PRN PRN Reason: Moderate Constipation Sodium Chloride (Ns Flush) 2 ml IV.FLUSH BID ROSEANNA Last Admin: 08/25/18 12:06 Dose: Not Given Sodium Chloride (Ns Flush) 2 ml IV.FLUSH PRN PRN PRN Reason: FLUSH AFTER USING IV ACCESS Allergies Allergy/AdvReac Type Severity Reaction Status Date / Time No Known Allergies Allergy Verified 08/24/18 19:39 Home Medications Medication Instructions Recorded Confirmed Type metformin 1,000 mg PO BID 08/24/18 08/24/18 History Exam Vital signs: Vital Signs 08/24/18 19:34 08/24/18 21:01 08/24/18 21:15 Temperature 97.8 F Pulse Rate 101 H 103 H Respiratory Rate 20 16 Blood Pressure 121/57 L 109/59 L Pulse Oximetry 96 94 L 95 08/24/18 23:39 08/25/18 01:00 08/25/18 02:20 Temperature 98.6 F Pulse Rate 93 H 89 85 Respiratory Rate 16 16 16 Blood Pressure 100/56 L 118/55 L 128/68 Pulse Oximetry 95 94 L 96 08/25/18 04:46 08/25/18 08:00 08/25/18 12:00 Temperature 97.7 F 98 F Pulse Rate 81 75 76 Respiratory Rate 16 16 Blood Pressure 120/63 122/71 Pulse Oximetry 98 98 08/25/18 16:14 Temperature 99.1 F Pulse Rate 88 Respiratory Rate 16 Blood Pressure 123/50 L Pulse Oximetry 97 Intake & Output 08/24/18 08/25/18 08/25/18 18:59 06:59 18:59 Intake Total 1850 / 1850 300 / 300 Balance 1850 / 1850 300 / 300 Weight 60.9 kg Intake: IV 1850 / 1850 300 / 300 Zosyn 3.375 GM Premix 3.375 gm 100 / 100 50 / 50 In 50 ml @ 100 mls/hr IV.SIG Q6H ROSEANNA Rx#:[id number] NS Inj 1,000 ML @ Wide Open IV. 1000 / 1000 SIG BOLUS ONE Rx#:[id number] NS Inj 500 ML @ Wide Open IV. 500 / 500 SIG BOLUS ONE Rx#:[id number] Vancomycin Inj 1,000 MG In NS 250 / 250 250 / 250 Inj 250 ML @ 250 mls/hr IV.SIG Q12H ROSEANNA Rx#:[id number] Other: Date of Last Bowel Movement 08/24/18 08/24/18 Weight On Admission 60.9 kg - Constitutional no acute distress, thin - Routine HEENT Exam Head: Present: normocephalic, atraumatic Eye: Present: EOMI, PERRL ENT: Present: mucous membranes moist, oropharynx clear - Routine Neck Exam Present: supple, full ROM. Absent: JVD, lymphadenopathy - Routine Respiratory Exam Present: CTA bilaterally. Absent: accessory muscle use, decreased breath sounds , rhonchi - Routine Cardiovascular Exam Present: RRR, S1, S2. Absent: murmur, gallop, rubs - Routine Abdominal Exam Present: soft, normoactive bowel sounds. Absent: tenderness, distended, organomegaly, mass - Routine Extremities Exam Present: full ROM. Absent: cyanosis, clubbing, edema - Routine Back/Spine/Pelvis Exam Back/Spine: Present: paraspinal tenderness (lower thoracic), vertebral tenderness (lower thoracic) - Routine Skin Exam Present: lesions (multiple dry and draining lesons scattere on B/l le, buttocks , largest L lateral thigh, small amoutn of walters pus was noted ) - Routine Neurological Exam Present: alert, oriented X3, CN II-XII intact. Absent: sensory deficit, motor deficit - Routine Psychiatric Exam Present: normal affect, cooperative Results - Labs CBC & Chem 7: 08/25/18 05:24 08/25/18 05:24 Labs: Laboratory Results - last 24 hr 08/24/18 08/24/18 08/24/18 21:15 21:15 21:15 WBC 13.3 H RBC 4.33 Hgb 11.5 L Hct 35.7 MCV 82.6 MCH 26.7 L MCHC 32.3 RDW 17.3 H Plt Count 428 MPV 7.0 Neut % (Auto) 85.7 H Lymph % (Auto) 7.3 L [place] % (Auto) 6.0 Eos % (Auto) 0.6 Baso % (Auto) 0.4 Neut # (Auto) 11.4 H Lymph # (Auto) 1.0 [place] # (Auto) 0.8 Eos # (Auto) 0.1 Baso # (Auto) 0.0 WBC Differential . Differential Comment Auto diff final PT 10.8 INR 1.1 APTT 28.7 Sodium 123 L* Potassium 4.2 Chloride 90 L Carbon Dioxide 24.7 Anion Gap 8 BUN 11 Creatinine 0.87 Estimated GFR 69 L POC Glucose Random Glucose 431 H Lactic Acid Calcium 8.5 Magnesium 1.8 Total Bilirubin 0.6 AST 29 ALT 41 Alkaline Phosphatase 132 H Total Creatine Kinase 12 L Troponin I Less than 0.02 L B-Natriuretic Peptide Total Protein 7.9 Albumin 2.2 L Lipase 405 H Urine Color Urine Clarity Urine pH Ur Specific [place] Urine Protein Urine Glucose (UA) Urine Ketones Urine Occult Blood Urine Nitrate Urine Bilirubin Urine Urobilinogen Ur Leukocyte Esterase Urine RBC Urine WBC Ur Squamous Epith Cells Micro UA Comment Ur Microscopic Review Urine Culture Comments Urine Opiates Screen Ur Barbiturates Screen Ur Amphetamines Screen U Benzodiazepines Scrn Urine Cocaine Screen U Cannabinoids Screen 08/24/18 08/24/18 08/24/18 21:15 21:15 21:24 WBC RBC Hgb Hct MCV MCH MCHC RDW Plt Count MPV Neut % (Auto) Lymph % (Auto) [place] % (Auto) Eos % (Auto) Baso % (Auto) Neut # (Auto) Lymph # (Auto) [place] # (Auto) Eos # (Auto) Baso # (Auto) WBC Differential Differential Comment PT INR APTT Sodium Potassium Chloride Carbon Dioxide Anion Gap BUN Creatinine Estimated GFR POC Glucose Random Glucose Lactic Acid 2.4 H Calcium Magnesium Total Bilirubin AST ALT Alkaline Phosphatase Total Creatine Kinase Troponin I B-Natriuretic Peptide 39 Total Protein Albumin Lipase Urine Color Urine Clarity Urine pH Ur Specific [place] Urine Protein Urine Glucose (UA) Urine Ketones Urine Occult Blood Urine Nitrate Urine Bilirubin Urine Urobilinogen Ur Leukocyte Esterase Urine RBC Urine WBC Ur Squamous Epith Cells Micro UA Comment Ur Microscopic Review Urine Culture Comments Urine Opiates Screen Neg Ur Barbiturates Screen Neg Ur Amphetamines Screen Neg U Benzodiazepines Scrn Neg Urine Cocaine Screen Neg U Cannabinoids Screen Neg 08/24/18 08/24/18 08/25/18 21:24 22:44 00:41 WBC RBC Hgb Hct MCV MCH MCHC RDW Plt Count MPV Neut % (Auto) Lymph % (Auto) [place] % (Auto) Eos % (Auto) Baso % (Auto) Neut # (Auto) Lymph # (Auto) [place] # (Auto) Eos # (Auto) Baso # (Auto) WBC Differential Differential Comment PT INR APTT Sodium Potassium Chloride Carbon Dioxide Anion Gap BUN Creatinine Estimated GFR POC Glucose 476 H* Random Glucose Lactic Acid 1.8 Calcium Magnesium Total Bilirubin AST ALT Alkaline Phosphatase Total Creatine Kinase Troponin I B-Natriuretic Peptide Total Protein Albumin Lipase Urine Color Yellow Urine Clarity Hazy H Urine pH 6.0 Ur Specific [place] 1.020 Urine Protein 100 H Urine Glucose (UA) 500 or greater Urine Ketones Negative Urine Occult Blood Negative Urine Nitrate Negative Urine Bilirubin Negative Urine Urobilinogen Less than 2 Ur Leukocyte Esterase Negative Urine RBC 2 Urine WBC 10 H Ur Squamous Epith Cells 1 Micro UA Comment Culture not ind Ur Microscopic Review Not Reportable Urine Culture Comments Culture not ind Urine Opiates Screen Ur Barbiturates Screen Ur Amphetamines Screen U Benzodiazepines Scrn Urine Cocaine Screen U Cannabinoids Screen 08/25/18 08/25/18 08/25/18 00:57 02:26 05:24 WBC 11.7 H RBC 3.53 L Hgb 10.1 L Hct 28.4 L MCV 80.5 MCH 28.5 MCHC 35.4 RDW 17.4 H Plt Count 380 MPV 6.5 L Neut % (Auto) 81.5 H Lymph % (Auto) 9.9 [place] % (Auto) 7.3 Eos % (Auto) 0.9 Baso % (Auto) 0.4 Neut # (Auto) 9.6 H Lymph # (Auto) 1.2 [place] # (Auto) 0.9 Eos # (Auto) 0.1 Baso # (Auto) 0.0 WBC Differential . Differential Comment Auto diff final PT INR APTT Sodium Potassium Chloride Carbon Dioxide Anion Gap BUN Creatinine Estimated GFR POC Glucose 380 H 284 H Random Glucose Lactic Acid Calcium Magnesium Total Bilirubin AST ALT Alkaline Phosphatase Total Creatine Kinase Troponin I B-Natriuretic Peptide Total Protein Albumin Lipase Urine Color Urine Clarity Urine pH Ur Specific [place] Urine Protein Urine Glucose (UA) Urine Ketones Urine Occult Blood Urine Nitrate Urine Bilirubin Urine Urobilinogen Ur Leukocyte Esterase Urine RBC Urine WBC Ur Squamous Epith Cells Micro UA Comment Ur Microscopic Review Urine Culture Comments Urine Opiates Screen Ur Barbiturates Screen Ur Amphetamines Screen U Benzodiazepines Scrn Urine Cocaine Screen U Cannabinoids Screen 08/25/18 08/25/18 08/25/18 05:24 05:24 08:06 WBC RBC Hgb Hct MCV MCH MCHC RDW Plt Count MPV Neut % (Auto) Lymph % (Auto) [place] % (Auto) Eos % (Auto) Baso % (Auto) Neut # (Auto) Lymph # (Auto) [place] # (Auto) Eos # (Auto) Baso # (Auto) WBC Differential Differential Comment PT INR APTT Sodium 134 L D Potassium 3.9 Chloride 102 D Carbon Dioxide 26.8 Anion Gap 5 BUN 6 L Creatinine 0.59 Estimated GFR Greater than 89 POC Glucose 214 H Random Glucose 235 H D Lactic Acid 1.3 Calcium 8.1 L Magnesium Total Bilirubin AST ALT Alkaline Phosphatase Total Creatine Kinase Troponin I B-Natriuretic Peptide Total Protein Albumin Lipase Urine Color Urine Clarity Urine pH Ur Specific [place] Urine Protein Urine Glucose (UA) Urine Ketones Urine Occult Blood Urine Nitrate Urine Bilirubin Urine Urobilinogen Ur Leukocyte Esterase Urine RBC Urine WBC Ur Squamous Epith Cells Micro UA Comment Ur Microscopic Review Urine Culture Comments Urine Opiates Screen Ur Barbiturates Screen Ur Amphetamines Screen U Benzodiazepines Scrn Urine Cocaine Screen U Cannabinoids Screen 08/25/18 08/25/18 12:03 16:40 WBC RBC Hgb Hct MCV MCH MCHC RDW Plt Count MPV Neut % (Auto) Lymph % (Auto) [place] % (Auto) Eos % (Auto) Baso % (Auto) Neut # (Auto) Lymph # (Auto) [place] # (Auto) Eos # (Auto) Baso # (Auto) WBC Differential Differential Comment PT INR APTT Sodium Potassium Chloride Carbon Dioxide Anion Gap BUN Creatinine Estimated GFR POC Glucose 201 H 236 H Random Glucose Lactic Acid Calcium Magnesium Total Bilirubin AST ALT Alkaline Phosphatase Total Creatine Kinase Troponin I B-Natriuretic Peptide Total Protein Albumin Lipase Urine Color Urine Clarity Urine pH Ur Specific [place] Urine Protein Urine Glucose (UA) Urine Ketones Urine Occult Blood Urine Nitrate Urine Bilirubin Urine Urobilinogen Ur Leukocyte Esterase Urine RBC Urine WBC Ur Squamous Epith Cells Micro UA Comment Ur Microscopic Review Urine Culture Comments Urine Opiates Screen Ur Barbiturates Screen Ur Amphetamines Screen U Benzodiazepines Scrn Urine Cocaine Screen U Cannabinoids Screen - Imaging Impressions Chest X-Ray 08/24/18 20:59 CONCLUSION: Markedly abnormal chest. Considerations include inflammatory process such as septic emboli or metastatic disease. CT scan of the chest with contrast would be of benefit Chest CTA 08/24/18 21:35 CONCLUSION: 1. Multiple masslike consolidative changes throughout both lungs most suspicious for inflammatory process. 2. There is minimal AP window adenopathy. 3. Trace pleural effusion is present on the left. Assessment and Plan - Plan IVDU Probable endocarditis, R sided, TV with multiple septic emboli Multiple cutaneous abscesses Diskitis, osteo T9-10 - dw Dr Barrios apparently failed treatment IR to bx consult NS cont vanco change zosyn to cefepime MR findings namita Chamberlain
[2018-08-25] MEDS ORDERED: Gadobutrol PF 7.5 MMOL/7.5 ML Vial (for RAD) IV.SIG ONE (22:22)
--- NOTE | 2018-08-25 22:36 | MR ---
EXAM DATE: 08/25/2018 10:28 PM EST AGE/SEX: 53 years / Female INDICATIONS: Pain. Rule out abscess. CLINICAL DATA: This is the patient's initial encounter. Patient reports that signs and symptoms have been present for 4 - 6 months and indicates a pain score of 7/10. MEDICAL/SURGICAL HISTORY: Diabetes. Hysterectomy. Tubal Ligation, Knee Surgery COMPARISON: [facility], CTA PULMONARY W CONTRAST W 3D, 08/24/2018. . TECHNIQUE: Multiplanar, multisequence MRI of the thoracic spine was performed without and with 6 ml Gadavist (gadobutrol) contrast as a single exam dose. FINDINGS: Vertebrae: Normal vertebral body height. There is abnormal marrow edema throughout the T9 and T10 ve rtebral bodies with indistinct endplates.. Alignment: Normal. Cord: Normal position and configuration. Post Contrast: After gadolinium administration there is abnormal enhancement of the T9 and T10 verte bral bodies and portions of the disc space. There is surrounding soft tissue swelling in the paraspin ous region. Axial images again demonstrate the abnormal marrow signal in the T10 and T9 vertebral bodies with inh omogeneity and abnormal enhancement. The paraspinous soft tissues are abnormally prominent with soft tissue swelling and enhancement. There is no evidence of an epidural abscess. The known areas of cons olidation in both lungs are partially visualized. CONCLUSION: 1. Discitis/osteomyelitis at T9-10 level. 2. No evidence of an epidural abscess. These findings were called to Dr. Zarate at 2235 hours. Electronically signed by: Celestine Antoine MD Board Certified Radiologist 08/25/2018 10:35 PM EST
--- NOTE | 2018-08-25 23:26 | ECG ---
Date Performed: 08/24/2018 Time Performed: 22:18:47 PTAGE: 53 years EKG: SINUS TACHYCARDIA MODERATE INTRAVENTRICULAR CONDUCTION DELAY ABNORMAL RHYTHM ECG NO PREVIOUS TRACING DOCTOR: Dianna Licea Interpretating Date/Time 08/25/2018 23:24:39
[2018-08-26] MEDS: Piperacil/Tazo 3.375 GM Premix 3.375 GM/50 ML PIGGYBACK IV.SIG SCH (04:11)
[2018-08-26] MEDS: Ketorolac Inj 30 MG/ML (IVP) Vial IV.PUSH PRN (04:43)
[2018-08-26 07:35] LABS: Anion Gap 6 meq/L (5-15); Blood Urea Nitrogen 6 mg/dL (7-18); Carbon Dioxide 27.4 meq/L (21.0-32.0); Chloride 103 meq/L (98-107); Glomerular Filtration Rate Greater Than 89 mL/min (>89); Glucose,Random 192 mg/dL (74-106); Potassium 3.7 meq/L (3.5-5.1); Sodium 136 meq/L (136-145)
[2018-08-26] MEDS: Insulin NovoLOG Aspart Correctional Sugar Inj SQ SCH ×4 (08:48→21:35)
[2018-08-26] MEDS ORDERED: fentaNYL Citrate Inj 250 MCG/5 ML Ampul ONE (10:06)
--- NOTE | 2018-08-26 10:41 | P.RAD ---
Post CT Procedure Prog Note - Procedure Information Procedure Date: 08/26/18 Supervising Radiologist: Emery Jeter MD Estimated blood loss (mL): 5 Anesthesia: Conscious Sedation - Plan of Activity Patient to Unit: [facility] Patient condition: Good See PACS Report for procedural detail/treatment.
[2018-08-26] MEDS ORDERED: Pharmacy Ordered Lab Info OTHER ONE (10:45)
[2018-08-26] MEDS: Vancomycin Inj 1,000 MG in Sodium Chlor 0.9% Inj 250 ML IV.SIG SCH ×2 (13:03→21:37)
--- NOTE | 2018-08-26 15:13 | MB ---
cc: Emory Cobian MD DATE: 08/26/2018 Report of initial comprehensive floor inpatient neurosurgical consultation. The patient was interviewed, examined, the documentation, laboratory evaluation, and imaging were reviewed. CHIEF COMPLAINT: Fatigue and back pain. HISTORY OF PRESENT ILLNESS: This is a 53-year-old right-handed white female who presents with complaints of increasing fatigue and persistent and progressive dorsal spine pain. In any case, she was admitted through the emergency department for further evaluation. Apparently, in 04/2018 she was diagnosed and treated for osteomyelitis and diskitis of the thoracic spine. She was treated with parenteral antibiotics and apparently developed acute renal failure, which required cessation of the antibiotic treatment. She developed increasing back pain as well as diffuse red and painful erythematous nodules on her left leg and right forearm and over her buttocks as well as vaginal region. In any case, workup has disclosed persistent T9-T10 diskitis with osteomyelitis and paraspinal abscesses without epidural abscess or neural compromise. She also apparently has multiple pulmonary septic emboli as well. In any case, she is undergoing workup and has undergone followup CT-guided needle aspiration of her thoracic spine, the results of which are pending. She has had a positive blood culture here and it is growing out methicillin-resistant Staphylococcus aureus. PAST MEDICAL HISTORY: Remarkable for history of diabetes, diskitis and osteomyelitis of the thoracic spine. There is also a history of intravenous drug abuse with heroin. PAST SURGICAL HISTORY: Remarkable for hysterectomy, as well as knee surgery and tubal ligation. MEDICATIONS: Metformin. ALLERGIES: SHE HAS NO KNOWN DRUG ALLERGIES. SOCIAL HISTORY: She is independent. She lives alone. She is unemployed. She admits to a history of cigarette smoking and smokes 1/2 pack per day of cigarettes for many years. She denies a history of ethanol abuse. Does admit to infrequent IV drug abuse. She says she has only tried heroin twice. FAMILY HISTORY: Unknown since the patient is adopted. REVIEW OF SYSTEMS: The patient denies any weight loss. She denies any fever, chills or night sweats. She denies any headaches or change in her thinking or memory or vision or hearing or speech or swallowing or chest pain or shortness of breath or abdominal pain or change in bowel or bladder function or characteristics of her urine or stool. She denies any difficulty with her gait or balance. She denies any rash, itching, or easy bruising. She denies any anxiety or depression. NEUROLOGICAL EXAMINATION: VITAL SIGNS: Her temperature is 98, her heart rate IS 100, her respiratory rate is 16. Her blood pressure is 109/59 and her pulse oximeter is 95% on room air. Mental status testing finds her to be awake and alert. She is oriented x 3. Cognitive function is grossly intact. Her speech is fluent. Cranial nerve testing 2-12 was grossly intact. Funduscopic examination was deferred. Visual ramírez are full to confrontation. Extraocular movements were full, without diplopia nor nystagmus. Motor examination found bulk and tone to be within normal limits. Power testing was 5+/5+ throughout. Sensory examination was intact to light touch and position throughout. Deep tendon reflexes were 1 to 2+ and symmetric without pathological reflexes noted. Cerebellar testing found no dysmetria. Fine coordination was grossly intact. There was no gross truncal nor appendicular ataxia noted. Gait was normal. Tandem was without difficulty. Romberg testing was negative. Her head was normocephalic. External auditory canals are clear. Cervical spine evaluation revealed full range of motion without pain to palpation or meningismus. There was pain to palpation over the mid to lower thoracic spine. There was no pain to palpation over the lumbosacral spine. There was mild limited range of motion. Hip rotation was full and not painful and straight leg raising was negative, but hindered somewhat due to back pain. Pulses were 4+, present and symmetrical throughout. IMPRESSION: My impression is that the patient has persistent T9-T10 diskitis with osteomyelitis and multiple paraspinal abscesses. This is in a patient who has diabetes mellitus and has been an intravenous drug abuser and suffers with substance abuse. At this point, there is no sign of thoracic myelopathy, nor thoracic spinal cord compression, nor neural compromise. There also was no sign of spinal instability. RECOMMENDATIONS AND PLAN: From a neurosurgical perspective, certainly a conservative neurosurgical approach is warranted. This patient requires medical management and a prolonged course of parenteral antibiotics with oral antibiotics to follow. I will defer to the infectious disease databases software consultant for the appropriate infectious disease management, that is, specifically antibiotic coverage. I do recommend that the patient be followed with serum inflammatory markers and will order these now. Since at this point, there is no sign of instability and the diskitis is located at T9-T10, I do not feel that the patient requires or will benefit from external bracing and I will not order a thoracic, lumbosacral orthosis. Ambulation is encouraged. I would recommend that the patient obtain followup imaging of her thoracic spine in 3 months. I discussed this all with the patient. She understood and was agreeable. I will defer her management to the medical and infectious disease services. There is nothing further I have to offer from a neurosurgical perspective. I will sign off the case. Please reconsult neurosurgery as needed. MD ROBBI Ramesh/akila , 02:12 PM , 02:28 PM [id number]
--- NOTE | 2018-08-26 15:39 | CT ---
EXAM DATE: 08/26/2018 11:16 AM EST AGE/SEX: 53 years / Female INDICATIONS: Back pain. Discitis T9. CLINICAL DATA: This is the patient's initial encounter. Patient reports that signs and symptoms have been present for 1 day and indicates a pain score of 7/10. MEDICAL/SURGICAL HISTORY: Osteomyelitis. Hysterectomy. Tubal ligation. COMPARISON: No prior exams available for comparison. SEDATION TIME (min): 15 BIOPSY SITE: T9 MEDICATION(S): 2.5mg midazolam (Versed) IV 125mcg fentanyl (Sublimaze) IV DEVICE(S): 17 gauge Introducer FLUID: Total volume of of fluid was removed. . . . PROCEDURE : CT guided drainage of the T9 . The risks, benefits and alternatives to the procedure were explained and verbal and written consent w as obtained. Using automated exposure control and adjustment of the mA and/or kV according to patient size, radiation dose was kept as low as reasonably achievable to obtain optimal diagnostic quality i mages. The site was prepped in sterile fashion. Full sterile technique was used, including cap, ma sk, sterile gloves and gown and a large sterile sheet. Hand hygiene and 2% chlorhexidine and/or beta dine/alcohol prep was utilized per protocol for cutaneous antisepsis. The skin and subcutaneous tiss ues were infiltrated with local anesthetic solution. DICOM format image data is available electronic ally for review and comparison. Using CT guidance the prescribed site was localized. 19-gauge true guide needle was advanced into the T9 disc space under careful CT guidance. Multiple aspirations yielded scant amount of serosanguineou s fluid. Entire sample was submitted for laboratory analysis per request. The patient tolerated the procedure well and there were no complications. The patient tolerated the procedure well and there were no complications. The patient was sent to post anesthesia recovery in s table condition. FINDINGS: CONCLUSION: 1. Uncomplicated CT guided T9 disc aspiration, as above. Electronically signed by: Emery Jeter MD Board Certified Radiologist 08/26/2018 3:38 PM EST
[2018-08-26] MEDS ORDERED: Morphine Sulfate Inj 2 MG/ML Vial IV.PUSH PRN (15:41)
--- NOTE | 2018-08-26 15:44 | P.PNIM ---
Subjective Interval history: Patient complains of back pain. She is requesting pain medications. Otherwise no complaints. Physical Exam Vital signs: Vital Signs 08/25/18 16:14 08/25/18 19:15 08/25/18 23:25 Temperature 99.1 F 97.9 F 97.7 F Pulse Rate 88 81 86 Respiratory Rate 16 17 18 Blood Pressure 123/50 L 118/63 121/66 Pulse Oximetry 97 94 L 93 L 08/26/18 04:20 08/26/18 08:00 08/26/18 10:39 Temperature 97.7 F 97 F L 97.5 F L Pulse Rate 77 74 81 Respiratory Rate 18 18 16 Blood Pressure 121/62 119/64 127/68 Pulse Oximetry 97 96 93 L 08/26/18 11:00 08/26/18 11:24 08/26/18 11:54 Temperature 97.5 F L Pulse Rate 81 78 72 Respiratory Rate 16 19 18 Blood Pressure 127/68 130/77 123/77 Pulse Oximetry 93 L 97 97 08/26/18 12:30 Temperature 97.3 F L Pulse Rate 96 H Respiratory Rate 18 Blood Pressure 119/70 Pulse Oximetry 98 Intake & Output 08/25/18 08/26/18 08/26/18 18:59 06:59 18:59 Intake Total 350 / 350 610 / 610 350 / 350 Balance 350 / 350 610 / 610 350 / 350 Weight 62.4 kg Intake: IV 350 / 350 350 / 350 350 / 350 Maxipime Inj 2,000 MG In NS Inj 100 / 100 100 ML @ 200 mls/hr IV.SIG Q8H ROSEANNA Rx#:[id number] Zosyn 3.375 GM Premix 3.375 gm 100 / 100 100 / 100 In 50 ml @ 100 mls/hr IV.SIG Q6H ROSEANNA Rx#:[id number] Vancomycin Inj 1,000 MG In NS 250 / 250 250 / 250 250 / 250 Inj 250 ML @ 250 mls/hr IV.SIG Q12H ROSEANNA Rx#:[id number] Oral 260 / 260 Other: # Voids 2 Date of Last Bowel Movement 08/24/18 # Bowel Movements 0 Narrative: General patient complains of back pain. HEENT extraocular movements are intact, clear oropharyngeal mucosa, no JVD Cardiovascular S1-S2 audible, RRR, no murmurs rubs or gallops Respiratory clear to auscultation bilaterally Abdomen soft, nontender, nondistended, normal bowel sounds Extremities no edema 2+ distal pulses in bilateral upper and lower extremities Neuro no focal neurological deficits. Results - Labs CBC & Chem 7: 08/25/18 05:24 08/26/18 06:52 Laboratory Results - last 24 hr 08/25/18 08/25/18 08/26/18 16:40 20:22 06:52 Sodium 136 Potassium 3.7 Chloride 103 Carbon Dioxide 27.4 Anion Gap 6 BUN 6 L Creatinine 0.49 L Estimated GFR Greater than 89 POC Glucose 236 H 335 H Random Glucose 192 H Calcium 8.0 L Vancomycin Trough 08/26/18 08/26/18 07:47 13:27 Sodium Potassium Chloride Carbon Dioxide Anion Gap BUN Creatinine Estimated GFR POC Glucose 198 H Random Glucose Calcium Vancomycin Trough 5.1 Microbiology 08/24/18 21:20 Blood - Peripheral Aerobic Blood Culture - Preliminary No growth in 2 days 08/24/18 21:20 Blood - Peripheral Anaerobic Blood Culture - Preliminary S. aureus MRSA 08/24/18 21:15 Blood - Peripheral Aerobic Blood Culture - Preliminary No growth in 2 days 08/24/18 21:15 Blood - Peripheral Anaerobic Blood Culture - Preliminary No growth in 2 days - Imaging Impressions Thoracic Spine MRI 08/25/18 00:00 CONCLUSION: 1. Discitis/osteomyelitis at T9-10 level. 2. No evidence of an epidural abscess. These findings were called to Dr. Zarate at 2235 hours. Assessment and Plan - Plan This patient is a 53-year-old female with a diagnosis of diabetes mellitus, IV drug abuse, recent treatment of thoracic spine osteomyelitis/discitis who presents to the emergency department. As per documentation the patient reports that in April 2018 she was diagnosed with osteomyelitis and discitis of the thoracic spine. She had a PICC line placed and was supposed to be on antibiotic infusion until 08/31/18 however due to renal failure her vancomycin was discontinued. Since she was unable to see her infectious disease specialist until 08/27/18 she came into the emergency department to be evaluated. 1. Sepsis secondary to osteomyelitis/discitis of the thoracic spine, questionable endocarditis Blood cultures came back +1 of 2 for MRSA. 2D echocardiogram shows ejection fraction of 60% mild mitral valve regurg. No vegetations. MRI of the thoracic spine shows discitis/ostium mellitus at T9-T10, no epidural abscess. CT chest shows notable masslike consolidative changes throughout both lungs. IR for bx today. No neurosurgical intervention recommended for now. Patient is on IV vancomycin, cefepime Infectious disease following Toradol is not working for the patient's pain at all. Toradol will be discontinued, start the patient on Tylenol, morphine for breakthrough pain. 2. Diabetes mellitus Blood sugars ranging from 200-300. Levemir 5 units nightly start today. Continue low-dose insulin sliding scale. Continue to monitor the patient's blood glucose. 3. 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 Will start tomorrow.
[2018-08-26] MEDS: Morphine Inj 4 MG/ML Vial IV.PUSH PRN ×2 (17:25→21:38)
[2018-08-26] MEDS: Insulin Detemir Inj 1,000 UNIT/10 ML Vial SQ SCH (21:35)
[2018-08-27] MEDS: Morphine Inj 4 MG/ML Vial IV.PUSH PRN ×6 (01:38→22:30)
[2018-08-27] MEDS: Vancomycin Inj 1,000 MG in Sodium Chlor 0.9% Inj 250 ML IV.SIG SCH ×3 (05:52→21:59)
[2018-08-27] MEDS ORDERED: Enoxaparin Inj 40 MG/0.4 ML Syringe SQ SCH (09:00)
[2018-08-27] MEDS: Insulin NovoLOG Aspart Correctional Sugar Inj SQ SCH ×4 (09:05→22:41)
[2018-08-27 09:47] LABS: Baso # (Auto) 0.1 th/mm3 (0.0-0.2); Baso % (Auto) 0.6 % (0.0-2.0); Eos # (Auto) 0.1 th/mm3 (0.0-0.4); Eos % (Auto) 1.1 % (0.0-4.0); Hematocrit 32.9 % (35.0-46.0); Hemoglobin 10.9 gm/dL (11.6-15.3); Lymph # (Auto) 1.3 th/mm3 (1.0-4.8); Lymph % (Auto) 12.7 % (9.0-44.0); Mean Corpuscular Hemoglobin 26.9 pg (27.0-34.0); Mean Corpuscular Volume 81.7 fL (80.0-100.0); Mean Platelet Volume 6.7 fL (7.0-11.0); Mono # (Auto) 0.7 th/mm3 (0.0-0.9); Neut # (Auto) 7.9 th/mm3 (1.8-7.7); Neut % (Auto) 78.6 % (16.0-70.0); Platelet Count 392 th/mm3 (150-450); Red Blood Count 4.03 mil/mm3 (4.00-5.30); Red Cell Distribution Width 17.7 % (11.6-17.2)
[2018-08-27 10:12] LABS: Anion Gap 7 meq/L (5-15); Blood Urea Nitrogen 4 mg/dL (7-18); Calcium 8.6 mg/dL (8.5-10.1); Carbon Dioxide 29.5 meq/L (21.0-32.0); Chloride 98 meq/L (98-107); Glomerular Filtration Rate Greater Than 89 mL/min (>89); Glucose,Random 170 mg/dL (74-106); Magnesium 1.9 mg/dL (1.5-2.5); Potassium 3.7 meq/L (3.5-5.1); Sodium 134 meq/L (136-145)
--- NOTE | 2018-08-27 11:07 | P.PNIM ---
Subjective Interval history: Patient complains of back pain. No other complaints from the patient. Physical Exam Vital signs: Vital Signs 08/26/18 11:24 08/26/18 11:54 08/26/18 12:30 Temperature 97.3 F L Pulse Rate 78 72 96 H Respiratory Rate 19 18 18 Blood Pressure 130/77 123/77 119/70 Pulse Oximetry 97 97 98 08/26/18 16:00 08/26/18 20:00 08/27/18 00:00 Temperature 97.2 F L 99.5 F 99.2 F Pulse Rate 89 99 H 106 H Respiratory Rate 18 17 18 Blood Pressure 136/70 135/77 123/72 Pulse Oximetry 97 98 96 08/27/18 08:00 Temperature 98.8 F Pulse Rate 86 Respiratory Rate 18 Blood Pressure 114/61 Pulse Oximetry 94 L Intake & Output 08/26/18 08/27/18 08/27/18 18:59 06:59 18:59 Intake Total 1410 / 1410 385 / 385 375 / 375 Output Total 1999 Balance -590 / -590 385 / 385 375 / 375 Weight 62.4 kg Intake: IV 450 / 450 385 / 385 375 / 375 Maxipime Inj 2,000 MG In NS Inj 200 / 200 110 / 110 100 / 100 100 ML @ 200 mls/hr IV.SIG Q8H ROSEANNA Rx#:[id number] Vancomycin Inj 1,000 MG In NS 250 / 250 275 / 275 275 / 275 Inj 250 ML @ 250 mls/hr IV.SIG Q8H ROSEANNA Rx#:[id number] Oral 960 / 960 Output: Urine 1999 Other: Date of Last Bowel Movement 08/26/18 # Bowel Movements 1 Narrative: General patient complains of back pain. HEENT extraocular movements are intact, clear oropharyngeal mucosa, no JVD Cardiovascular S1-S2 audible, RRR, no murmurs rubs or gallops Respiratory clear to auscultation bilaterally Abdomen soft, nontender, nondistended, normal bowel sounds Extremities no edema 2+ distal pulses in bilateral upper and lower extremities Neuro no focal neurological deficits. Results - Labs CBC & Chem 7: 08/27/18 09:20 08/27/18 09:20 Laboratory Results - last 24 hr 08/26/18 08/26/18 08/26/18 13:27 17:28 17:29 WBC RBC Hgb Hct MCV MCH MCHC RDW Plt Count MPV Neut % (Auto) Lymph % (Auto) Bay % (Auto) Eos % (Auto) Baso % (Auto) Neut # (Auto) Lymph # (Auto) Bay # (Auto) Eos # (Auto) Baso # (Auto) WBC Differential Differential Comment ESR Sodium Potassium Chloride Carbon Dioxide Anion Gap BUN Creatinine Estimated GFR POC Glucose 418 H 413 H Random Glucose Calcium Magnesium C-Reactive Protein Vancomycin Trough 5.1 08/26/18 08/26/18 08/26/18 17:39 17:39 20:46 WBC RBC Hgb Hct MCV MCH MCHC RDW Plt Count MPV Neut % (Auto) Lymph % (Auto) Bay % (Auto) Eos % (Auto) Baso % (Auto) Neut # (Auto) Lymph # (Auto) Bay # (Auto) Eos # (Auto) Baso # (Auto) WBC Differential Differential Comment ESR 65 H Sodium Potassium Chloride Carbon Dioxide Anion Gap BUN Creatinine Estimated GFR POC Glucose 204 H Random Glucose Calcium Magnesium C-Reactive Protein 6.30 H Vancomycin Trough 08/27/18 08/27/18 08/27/18 07:48 09:20 09:20 WBC 10.0 RBC 4.03 Hgb 10.9 L Hct 32.9 L MCV 81.7 MCH 26.9 L MCHC 33.0 RDW 17.7 H Plt Count 392 MPV 6.7 L Neut % (Auto) 78.6 H Lymph % (Auto) 12.7 Bay % (Auto) 7.0 Eos % (Auto) 1.1 Baso % (Auto) 0.6 Neut # (Auto) 7.9 H Lymph # (Auto) 1.3 Bay # (Auto) 0.7 Eos # (Auto) 0.1 Baso # (Auto) 0.1 WBC Differential . Differential Comment Auto diff final ESR Sodium 134 L Potassium 3.7 Chloride 98 Carbon Dioxide 29.5 Anion Gap 7 BUN 4 L Creatinine 0.50 Estimated GFR Greater than 89 POC Glucose 138 H Random Glucose 170 H Calcium 8.6 Magnesium 1.9 C-Reactive Protein Vancomycin Trough Microbiology 08/24/18 21:20 Blood - Peripheral Aerobic Blood Culture - Preliminary No growth in 3 days 08/24/18 21:20 Blood - Peripheral Anaerobic Blood Culture - Preliminary S. aureus MRSA 08/24/18 21:15 Blood - Peripheral Aerobic Blood Culture - Preliminary No growth in 3 days 08/24/18 21:15 Blood - Peripheral Anaerobic Blood Culture - Preliminary No growth in 3 days 08/26/18 10:40 Fluid - Other Fungal Smear - Final No fungal elements seen 08/26/18 10:40 Fluid - Other Gram Stain - Final - Imaging Impressions Needle Aspiration CT 08/26/18 00:00 CONCLUSION: 1. Uncomplicated CT guided T9 disc aspiration, as above. Assessment and Plan - Plan This patient is a 53-year-old female with a diagnosis of diabetes mellitus, IV drug abuse, recent treatment of thoracic spine osteomyelitis/discitis who presents to the emergency department. As per documentation the patient reports that in April 2018 she was diagnosed with osteomyelitis and discitis of the thoracic spine. She had a PICC line placed and was supposed to be on antibiotic infusion until 08/31/18 however due to renal failure her vancomycin was discontinued. Since she was unable to see her infectious disease specialist until 08/27/18 she came into the emergency department to be evaluated. 1. Sepsis secondary to osteomyelitis/discitis of the thoracic spine, questionable endocarditis Blood cultures came back +1 of 2 for MRSA. 2D echocardiogram shows ejection fraction of 60% mild mitral valve regurg. No vegetations. MRI of the thoracic spine shows discitis/ostium mellitus at T9-T10, no epidural abscess. CT chest shows notable masslike consolidative changes throughout both lungs. IR for bx today. Cultures are pending. No neurosurgical intervention recommended for now. Repeat Imaging of T spine in 3 months as per neurosurg recs. Patient is on IV vancomycin, cefepime Infectious disease following Toradol is not working for the patient's pain at all. Toradol will be discontinued, start the patient on Tylenol, morphine for breakthrough pain. 2. Diabetes mellitus Blood sugars better controlled today. Levemir 5 units nightly start today. Continue low-dose insulin sliding scale. Continue to monitor the patient's blood glucose. 3. 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 Will start tomorrow.
[2018-08-27] MEDS ORDERED: Pharmacy Ordered Lab Info OTHER ONE (20:45)
[2018-08-27] MEDS: Insulin Detemir Inj 1,000 UNIT/10 ML Vial SQ SCH (22:41)
[2018-08-27] MEDS: LORazepam 0.5 MG Tablet PO PRN (23:50)
[2018-08-28] MEDS: Morphine Inj 4 MG/ML Vial IV.PUSH PRN ×5 (03:33→20:45)
[2018-08-28] MEDS: Vancomycin Inj 1,000 MG in Sodium Chlor 0.9% Inj 250 ML IV.SIG SCH ×3 (04:27→20:17)
[2018-08-28] MEDS: Insulin NovoLOG Aspart Correctional Sugar Inj SQ SCH ×6 (09:10→20:17)
--- NOTE | 2018-08-28 11:58 | P.PNIM ---
Subjective Interval history: Patient sitting upright in bed with family at bedside. She does not have any specific complaints this morning. Physical Exam Vital signs: Vital Signs 08/27/18 12:00 08/27/18 16:00 08/27/18 20:00 Temperature 97.9 F 98 F 98.6 F Pulse Rate 95 H 98 H 93 H Respiratory Rate 18 18 18 Blood Pressure 119/61 114/56 L 125/60 Pulse Oximetry 96 97 96 08/28/18 00:00 08/28/18 04:00 08/28/18 08:00 Temperature 98.3 F 97.9 F 98.3 F Pulse Rate 80 79 85 Respiratory Rate 18 18 18 Blood Pressure 126/61 118/59 L 120/59 L Pulse Oximetry 94 L 92 L 93 L Intake & Output 08/27/18 08/28/18 08/28/18 18:59 06:59 18:59 Intake Total 1585 / 1585 700 / 700 100 / 100 Balance 1585 / 1585 700 / 700 100 / 100 Weight 62.4 kg Intake: IV 625 / 625 700 / 700 100 / 100 Maxipime Inj 2,000 MG In NS Inj 100 / 100 200 / 200 100 / 100 100 ML @ 200 mls/hr IV.SIG Q8H ROSEANNA Rx#:[id number] Vancomycin Inj 1,000 MG In NS 525 / 525 500 / 500 Inj 250 ML @ 250 mls/hr IV.SIG Q8H ROSEANNA Rx#:[id number] Oral 960 / 960 Other: # Voids 3 Date of Last Bowel Movement 08/26/18 08/26/18 # Bowel Movements 1 Narrative: General patient complains of back pain, improving. HEENT extraocular movements are intact, clear oropharyngeal mucosa, no JVD Cardiovascular S1-S2 audible, RRR, no murmurs rubs or gallops Respiratory clear to auscultation bilaterally Abdomen soft, nontender, nondistended, normal bowel sounds Extremities no edema 2+ distal pulses in bilateral upper and lower extremities Neuro no focal neurological deficits. Results - Labs CBC & Chem 7: 08/27/18 09:20 08/27/18 09:20 Laboratory Results - last 24 hr 08/27/18 08/27/18 08/27/18 12:35 17:41 22:08 POC Glucose 259 H 309 H 441 H Vancomycin Trough 08/27/18 08/28/18 22:35 08:19 POC Glucose 120 H Vancomycin Trough 10.9 H Microbiology 08/24/18 21:20 Blood - Peripheral Aerobic Blood Culture - Preliminary No growth in 4 days 08/24/18 21:20 Blood - Peripheral Anaerobic Blood Culture - Final S. aureus MRSA 08/24/18 21:15 Blood - Peripheral Aerobic Blood Culture - Preliminary No growth in 4 days 08/24/18 21:15 Blood - Peripheral Anaerobic Blood Culture - Preliminary No growth in 4 days 08/26/18 10:40 Fluid - Other Gram Stain - Final 08/26/18 10:40 Fluid - Other Body Fluid Culture - Preliminary No growth in 48 hours 08/26/18 10:40 Fluid - Other Acid Fast Bacilli Smear - Final No acid fast bacilli seen 08/26/18 10:40 Fluid - Other Fungal Smear - Final No fungal elements seen Assessment and Plan - Plan This patient is a 53-year-old female with a diagnosis of diabetes mellitus, IV drug abuse, recent treatment of thoracic spine osteomyelitis/discitis who presents to the emergency department. As per documentation the patient reports that in April 2018 she was diagnosed with osteomyelitis and discitis of the thoracic spine. She had a PICC line placed and was supposed to be on antibiotic infusion until 08/31/18 however due to renal failure her vancomycin was discontinued. Since she was unable to see her infectious disease specialist until 08/27/18 she came into the emergency department to be evaluated. 1. Sepsis secondary to osteomyelitis/discitis of the thoracic spine, questionable endocarditis Blood cultures came back +1 of 2 for MRSA. Repeat blood cxs ordered. 2D echocardiogram shows ejection fraction of 60% mild mitral valve regurg. No vegetations. MRI of the thoracic spine shows discitis/ostium mellitus at T9-T10, no epidural abscess. CT chest shows notable masslike consolidative changes throughout both lungs. Patient is s/p bx T9 on 08/26/18, Results are pending. I will discuss the case with ID today. No neurosurgical intervention recommended for now. Repeat Imaging of T spine in 3 months as per neurosurg recs. Patient is on IV vancomycin, cefepime Continue current pain medication regimen. 2. Diabetes mellitus Labile blood sugars between 130-300, one reading in the 400s. Continue Levemir 5 units q hs. Start insulin 3 times daily pre-meals 3 units Change to low-dose insulin sliding scale Patient advised to follow the hospital's diabetic diet. 3. 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
--- NOTE | 2018-08-28 13:43 | P.AMA ---
AMA Note AMA Statement: Patient Ariane Goss has decided to leave the hospital against medical advice. This patient has the capacity to refuse care and understands the risks of leaving, including permanent disability and/or , and has had an opportunity to ask questions about his/her condition. The patient has been informed that he/she may return for care at any time, and follow up has been arranged/advised. Discharge Disposition: Against Medical Advice Patient Condition on Discharge: Stable
[2018-08-28] MEDS: Enoxaparin Inj 40 MG/0.4 ML Syringe SQ SCH (17:27)
[2018-08-28] MEDS: Insulin Detemir Inj 1,000 UNIT/10 ML Vial SQ SCH (20:17)
[2018-08-29] MEDS: Morphine Inj 4 MG/ML Vial IV.PUSH PRN ×6 (00:53→21:49)
[2018-08-29] MEDS: Vancomycin Inj 1,000 MG in Sodium Chlor 0.9% Inj 250 ML IV.SIG SCH ×3 (04:42→21:50)
[2018-08-29] MEDS: Enoxaparin Inj 40 MG/0.4 ML Syringe SQ SCH (09:21)
[2018-08-29] MEDS: Insulin NovoLOG Aspart Correctional Sugar Inj SQ SCH ×7 (09:21→21:49)
[2018-08-29 11:12] LABS: Glomerular Filtration Rate Greater Than 89 mL/min (>89)
--- NOTE | 2018-08-29 15:06 | P.PNIM ---
Subjective Interval history: Patient sitting upright in bed. She is requesting evaluation of psychiatry. No other complaints from the patient. Physical Exam Vital signs: Vital Signs 08/28/18 16:00 08/28/18 19:45 08/29/18 00:58 Temperature 97.8 F 98.1 F 98.1 F Pulse Rate 135 H 92 H 85 Respiratory Rate 20 18 18 Blood Pressure 93/50 L 112/70 93/51 L Pulse Oximetry 98 96 96 08/29/18 04:48 08/29/18 08:00 Temperature 98.3 F 97.9 F Pulse Rate 77 92 H Respiratory Rate 18 20 Blood Pressure 93/50 L 116/54 L Pulse Oximetry 94 L 96 Intake & Output 08/28/18 08/29/18 08/29/18 18:59 06:59 18:59 Intake Total 820 / 820 700 / 700 100 / 100 Balance 820 / 820 700 / 700 100 / 100 Weight 61.3 kg Intake: IV 100 / 100 700 / 700 100 / 100 Maxipime Inj 2,000 MG In NS Inj 100 / 100 200 / 200 100 / 100 100 ML @ 200 mls/hr IV.SIG Q8H ROSEANNA Rx#:[id number] Vancomycin Inj 1,000 MG In NS 500 / 500 Inj 250 ML @ 250 mls/hr IV.SIG Q8H ROSEANNA Rx#:[id number] Oral 720 / 720 Other: # Voids 3 Date of Last Bowel Movement 08/26/18 # Bowel Movements 1 Narrative: General no complaints from the patient this morning. HEENT extraocular movements are intact, clear oropharyngeal mucosa, no JVD Cardiovascular S1-S2 audible, RRR, no murmurs rubs or gallops Respiratory clear to auscultation bilaterally Abdomen soft, nontender, nondistended, normal bowel sounds Extremities no edema 2+ distal pulses in bilateral upper and lower extremities Neuro no focal neurological deficits. Results - Labs CBC & Chem 7: 08/27/18 09:20 08/29/18 09:30 Laboratory Results - last 24 hr 08/28/18 08/28/18 08/29/18 17:13 20:06 07:59 Creatinine Estimated GFR POC Glucose 260 H 288 H 174 H 08/29/18 08/29/18 09:30 13:02 Creatinine 0.61 Estimated GFR Greater than 89 POC Glucose 106 Microbiology 08/28/18 13:05 Blood - Peripheral Aerobic Blood Culture - Preliminary No growth in 1 day 08/28/18 13:05 Blood - Peripheral Anaerobic Blood Culture - Preliminary No growth in 1 day 08/28/18 13:11 Blood - Peripheral Aerobic Blood Culture - Preliminary No growth in 1 day 08/28/18 13:11 Blood - Peripheral Anaerobic Blood Culture - Preliminary No growth in 1 day 08/24/18 21:20 Blood - Peripheral Aerobic Blood Culture - Final No growth in 5 days 08/24/18 21:20 Blood - Peripheral Anaerobic Blood Culture - Final S. aureus MRSA 08/24/18 21:15 Blood - Peripheral Aerobic Blood Culture - Final No growth in 5 days 08/24/18 21:15 Blood - Peripheral Anaerobic Blood Culture - Final No growth in 5 days 08/26/18 10:40 Fluid - Other Gram Stain - Final 08/26/18 10:40 Fluid - Other Body Fluid Culture - Final No growth in 72 hours (aerobically and anaerobically ) Assessment and Plan - Plan This patient is a 53-year-old female with a diagnosis of diabetes mellitus, IV drug abuse, recent treatment of thoracic spine osteomyelitis/discitis who presents to the emergency department. As per documentation the patient reports that in April 2018 she was diagnosed with osteomyelitis and discitis of the thoracic spine. She had a PICC line placed and was supposed to be on antibiotic infusion until 08/31/18 however due to renal failure her vancomycin was discontinued. Since she was unable to see her infectious disease specialist until 08/27/18 she came into the emergency department to be evaluated. 08/29/18 Patient was evaluated today. She wanted to leave [facility] yesterday but is here under an ex parte and cannot leave [facility]. Pending evaluation by Psychiatry. Will follow up their evaluation. Continue IV antibiotics. ID following the patient. Bx still pending. F/U am labs. 1. Sepsis secondary to osteomyelitis/discitis of the thoracic spine, questionable endocarditis Blood cultures came back +1 of 2 for MRSA. Repeat blood cxs ordered. 2D echocardiogram shows ejection fraction of 60% mild mitral valve regurg. No vegetations. MRI of the thoracic spine shows discitis/ostium mellitus at T9-T10, no epidural abscess. CT chest shows notable masslike consolidative changes throughout both lungs. Patient is s/p bx T9 on 08/26/18, Results are pending. I will discuss the case with ID today. No neurosurgical intervention recommended for now. Repeat Imaging of T spine in 3 months as per neurosurg recs. Patient is on IV vancomycin, cefepime Continue current pain medication regimen. 2. Diabetes mellitus Labile blood sugars between 130-300, one reading in the 400s. Continue Levemir 5 units q hs. Start insulin 3 times daily pre-meals 3 units Change to low-dose insulin sliding scale Patient advised to follow the hospital's diabetic diet. 3. 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
--- NOTE | 2018-08-29 19:48 | P.CONPSY ---
Provisional Diagnosis Admission Date: August 24, 2018 22:35 History of Present Illness Service: psychiatry Consult date: 08/29/18 Primary Care Provider: UNKNOWN Chief Complaint: AMS History of Present Illness: This is a request for a psychiatric consult. Documentation was reviewed, case was discussed with nursing and patient was evaluated. Patient is a 53-year-old female with no psychiatric history. We are consulted today to evaluate an exparte that was completed 2 days ago. Patient was admitted to the unit 5 days ago for a spinal infection. Patient vehemently denies that contents of the court document. Patient says her younger daughter filled that out and she has an ulterior motive. Patient says that her younger daughter has been estranged for 4 years. Allegedly there is daughter wants guardianship to obtain her Social Security disability money that is due. Per the court documents patient is a risk to herself because of lack of self-care. She has allegedly been not walking well but nursing states she is walking well. She was stated to be confused which she is not on the interview and she is oriented x4. She was stated to be using fentanyl and heroin which patient says she denies any is never used drugs before. She was said to look malnourished which patient may. Patient denies any mood symptoms. She denies any suicidal or homicidal ideation intent or plan. Nursing has not noticed any bizarre behavior. Patient has been fully compliant with her medical treatment. Past psych: Patient denies a history of inpatient or outpatient treatment. Denies a history of any psychotropic medications. Denies a history of suicide attempts Past medical: Spinal infection and diabetes Past Famhx: Denies Past Social: Patient lives with her other daughter. She was working until this April as a [employer]. She is getting the Social Security for spinal degeneration. She denies any alcohol or substance use. Review of Systems All other systems reviewed negative except as stated in HPI PMFSH - History History Provided By: Patient - Medical History Medical History: Medical History (Last Reviewed 08/29/18 @ 19:45 by Garland Silva DO) Diabetes Discitis H/O: hysterectomy History of MRSA infection Onset Date: ~08/24/18 Osteomyelitis - Surgical History Surgical History: Surgical History (Last Reviewed 08/29/18 @ 19:45 by Garland Silva DO) History of knee surgery History of tubal ligation - Family History Family History: Family History (Last Reviewed 08/26/18 @ 06:59 by Kia Zarate MD) Other Family history unknown - Tobacco History Second Hand Smoke Exposure: Yes Tobacco Use In Past 30 Days: Yes Smoking Status: Current every day smoker Tobacco Type: Cigarettes Packs Per Day: 0.5 Cigarettes Per Day: 10.0 - Alcohol History How Often Do You Have a Drink Containing Alcohol: Never - Substance Use History Substance History: Past History - Travel History Recent Travel in the [place] Within the Last 8 Weeks: No Recent Travel Out of the Country Within the Last 8 Weeks: No - Immunization History Tetanus Immunization: Unsure Hx Influenza Vaccine This Season: No Medications and Allergies Active Medications: Active Medications Acetaminophen (Tylenol) 650 mg PO Q4H PRN PRN Reason: PAIN 1-10 AND/OR FEVER >101F Al Hydroxide/Mg Hydroxide (Milk Of Magnesia Liq) 30 ml PO Q12H PRN PRN Reason: Mild Constipation Bisacodyl (Dulcolax Supp) 10 mg RECTAL DAILY PRN PRN Reason: SEVERE CONSITIPATION Dextrose (D50w Vial) 50 ml IV.PUSH UNSCH PRN PRN Reason: PER HYPOGLYCEMIA PROTOCOL Enoxaparin Sodium (Lovenox Inj) 40 mg SQ DAILY [facility] Last Admin: 08/29/18 09:21 Dose: 40 mg Glucagon (Glucagon Inj) 1 mg OTHER PRN PRN PRN Reason: for Hypoglycemia Protocol Hydroxyzine HCl (Atarax) 25 mg PO Q8HR PRN PRN Reason: ANXIETY Last Admin: 08/25/18 16:28 Dose: 25 mg Cefepime HCl 2,000 mg/ Sodium (Chloride) 100 mls @ 200 mls/hr IV.SIG Q8H ROSEANNA Last Infusion: 08/29/18 19:25 Dose: Infused Vancomycin HCl 1,000 mg/ (Sodium Chloride) 250 mls @ 250 mls/hr IV.SIG Q8H ROSEANNA Last Infusion: 08/29/18 15:41 Dose: Infused Insulin Aspart (Novolog Insulin Correctional Sugar Inj) 0 unit SQ ACHS [facility]; Protocol Last Admin: 08/29/18 18:13 Dose: 3 unit Insulin Aspart (Novolog Insulin Correctional Sugar Inj) 3 unit SQ TIDAC [facility] Last Admin: 08/29/18 18:13 Dose: 3 unit Insulin Detemir (Levemir Inj) 5 unit SQ HS [facility] Last Admin: 08/28/18 20:17 Dose: 5 unit Lactulose (Lactulose Liq) 30 ml PO DAILY PRN PRN Reason: SEVERE CONSITIPATION Lorazepam (Ativan) 0.5 mg PO Q6H PRN PRN Reason: withdrawal symptoms/agitation Last Admin: 08/27/18 23:50 Dose: 0.5 mg Miscellaneous Information ([facility] Ordered Lab Info) 0 each OTHER ONCE ONE Stop: 08/29/18 20:46 Morphine Sulfate (Morphine Inj) 2 mg IV.PUSH Q4H PRN PRN Reason: BREAKTHROUGH PAIN Last Admin: 08/29/18 18:11 Dose: 2 mg Naloxone HCl (Narcan Inj) 0.4 mg IV.PUSH UNSCH PRN PRN Reason: SEE LABEL COMMENTS Nicotine (Habitrol 21 Mg Patch.24 Hr) 1 patch T-DERMAL DAILY [facility] Last Admin: 08/29/18 09:22 Dose: Not Given Ondansetron HCl (Zofran Inj) 4 mg IV.PUSH Q6H PRN PRN Reason: NAUSEA OR VOMITING Pharmacy Profile Note (Vancomycin Consult Pharmacy) 1 each OTHER UNSCH PRN PRN Reason: Pharmacy to dose Sennosides (Senokot) 17.2 mg PO Q12H PRN PRN Reason: Moderate Constipation Sodium Chloride (Ns Flush) 2 ml IV.FLUSH BID [facility] Last Admin: 08/29/18 09:22 Dose: 2 ml Sodium Chloride (Ns Flush) 2 ml IV.FLUSH PRN PRN PRN Reason: FLUSH AFTER USING IV ACCESS Allergies Allergy/AdvReac Type Severity Reaction Status Date / Time No Known Allergies Allergy Verified 08/24/18 19:39 Home Medications Medication Instructions Recorded Confirmed Type metformin 1,000 mg PO BID 08/24/18 08/24/18 History Exam Vital signs: Vital Signs 08/28/18 19:45 08/29/18 00:58 08/29/18 04:48 Temperature 98.1 F 98.1 F 98.3 F Pulse Rate 92 H 85 77 Respiratory Rate 18 18 18 Blood Pressure 112/70 93/51 L 93/50 L Pulse Oximetry 96 96 94 L 08/29/18 08:00 Temperature 97.9 F Pulse Rate 92 H Respiratory Rate 20 Blood Pressure 116/54 L Pulse Oximetry 96 Intake & Output 08/29/18 08/29/1819 06:59 18:59 06:59 Intake Total 700 / 700 350 / 350 100 / 100 Balance 700 / 700 350 / 350 100 / 100 Weight 61.3 kg Intake: IV 700 / 700 350 / 350 100 / 100 Maxipime Inj 2,000 MG In NS Inj 200 / 200 100 / 100 100 / 100 100 ML @ 200 mls/hr IV.SIG Q8H ROSEANNA Rx#:[id number] Vancomycin Inj 1,000 MG In NS 500 / 500 250 / 250 Inj 250 ML @ 250 mls/hr IV.SIG Q8H ROSEANNA Rx#:[id number] Other: Date of Last Bowel Movement 08/27/18 Mental Status Examination Appearance: Appropriate Consciousness: Alert Orientation: x4 Motor Activity: Normal gait Speech: Unremarkable Language: Adequate Fund of Knowledge: Adequate Attention and Concentration: Adequate Memory: Unremarkable Mood: Appropriate Affect: Appropriate Thought Process & Associations: Intact Thought Content: Appropriate Hallucination Type: None Delusion Type: None Suicidal Ideation: No Suicidal Plan: No Suicidal Intention: No Homicidal Ideation: No Homicidal Plan: No Homicidal Intention: No Insight: Adequate Judgment: Adequate Assessment and Plan - Assessment (1) Adjustment disorder Code(s): F43.20 - Adjustment disorder, unspecified Status: Acute (2) Adjustment disorder with mixed disturbance of emotions and conduct Code(s): F43.25 - Adjustment disorder with mixed disturbance of emotions and conduct Status: Acute - Plan Plan: Patient was asked to compile a list of phone numbers of her other children where we could obtain further collateral information. Though based on patient' s interview does not appear that she is a danger to herself or others or has concerns for lack of self-care. Please reconsult us tomorrow for evaluation Justification for Continued Inpatient Stay: Patient would decompensate in a less restrictive setting
[2018-08-29] MEDS ORDERED: Pharmacy Ordered Lab Info OTHER ONE (20:45)
[2018-08-29] MEDS: Insulin Detemir Inj 1,000 UNIT/10 ML Vial SQ SCH (21:49)
[2018-08-30] MEDS: LORazepam 0.5 MG Tablet PO PRN ×2 (00:18→21:34)
[2018-08-30] MEDS: Morphine Inj 4 MG/ML Vial IV.PUSH PRN ×6 (01:56→23:45)
[2018-08-30] MEDS ORDERED: Vancomycin Inj 1,000 MG in Sodium Chlor 0.9% Inj 250 ML IV.SIG SCH (08:00)
[2018-08-30] MEDS: Insulin NovoLOG Aspart Correctional Sugar Inj SQ SCH ×7 (08:01→20:55)
[2018-08-30] MEDS: Enoxaparin Inj 40 MG/0.4 ML Syringe SQ SCH (08:15)
[2018-08-30 09:59] LABS: Anion Gap 5 meq/L (5-15); Blood Urea Nitrogen 10 mg/dL (7-18); Calcium 9.1 mg/dL (8.5-10.1); Carbon Dioxide 28.6 meq/L (21.0-32.0); Chloride 98 meq/L (98-107); Glomerular Filtration Rate Greater Than 89 mL/min (>89); Glucose,Random 130 mg/dL (74-106); Magnesium 1.9 mg/dL (1.5-2.5); Potassium 4.6 meq/L (3.5-5.1); Sodium 132 meq/L (136-145)
--- NOTE | 2018-08-30 15:08 | P.PNIM ---
Subjective Interval history: No complaints today. She is requesting to have the ex parte removed. Physical Exam Vital signs: Vital Signs 08/29/18 16:00 08/29/18 20:00 08/29/18 20:54 Temperature 98.7 F 99.1 F Pulse Rate 91 H 99 H Respiratory Rate 20 18 Blood Pressure 125/66 98/57 L Pulse Oximetry 97 97 95 08/29/18 23:54 08/30/18 04:00 08/30/18 08:00 Temperature 98.2 F 97.7 F 98 F Pulse Rate 89 79 92 H Respiratory Rate 16 17 16 Blood Pressure 113/55 L 96/55 L 106/53 L Pulse Oximetry 97 92 L 96 08/30/18 11:43 08/30/18 12:00 Temperature 98.5 F Pulse Rate 89 Respiratory Rate 16 16 Blood Pressure 113/55 L Pulse Oximetry 95 Intake & Output 08/29/18 08/30/18 08/30/18 18:59 06:59 18:59 Intake Total 1190 / 1190 450 / 450 350 / 350 Balance 1190 / 1190 450 / 450 350 / 350 Weight 60.7 kg Intake: IV 350 / 350 450 / 450 350 / 350 Maxipime Inj 2,000 MG In NS Inj 100 / 100 200 / 200 100 / 100 100 ML @ 200 mls/hr IV.SIG Q8H ROSEANNA Rx#:[id number] Vancomycin Inj 1,000 MG In NS 250 / 250 250 / 250 250 / 250 Inj 250 ML @ 250 mls/hr IV.SIG Q8H ROSEANNA Rx#:[id number] Oral 840 / 840 Other: # Voids 4 Date of Last Bowel Movement 08/27/18 08/29/18 # Bowel Movements 0 Narrative: General no complaints from the patient this morning. HEENT extraocular movements are intact, clear oropharyngeal mucosa, no JVD Cardiovascular S1-S2 audible, RRR, no murmurs rubs or gallops Respiratory clear to auscultation bilaterally Abdomen soft, nontender, nondistended, normal bowel sounds Extremities no edema 2+ distal pulses in bilateral upper and lower extremities Neuro no focal neurological deficits. Results - Labs CBC & Chem 7: 08/27/18 09:20 08/30/18 08:14 Laboratory Results - last 24 hr 08/29/18 08/29/18 08/29/18 17:20 21:00 21:39 Sodium Potassium Chloride Carbon Dioxide Anion Gap BUN Creatinine Estimated GFR POC Glucose 202 H 295 H Random Glucose Calcium Magnesium Vancomycin Trough 6.2 Random Vancomycin 08/30/18 08/30/18 08/30/18 07:57 08:14 12:29 Sodium 132 L Potassium 4.6 Chloride 98 Carbon Dioxide 28.6 Anion Gap 5 BUN 10 Creatinine 0.55 Estimated GFR Greater than 89 POC Glucose 158 H 130 H Random Glucose 130 H Calcium 9.1 Magnesium 1.9 Vancomycin Trough Random Vancomycin 6.0 Microbiology 08/28/18 13:05 Blood - Peripheral Aerobic Blood Culture - Preliminary No growth in 2 days 08/28/18 13:05 Blood - Peripheral Anaerobic Blood Culture - Preliminary No growth in 2 days 08/28/18 13:11 Blood - Peripheral Aerobic Blood Culture - Preliminary No growth in 2 days 08/28/18 13:11 Blood - Peripheral Anaerobic Blood Culture - Preliminary No growth in 2 days 08/24/18 21:20 Blood - Peripheral Aerobic Blood Culture - Final No growth in 5 days 08/24/18 21:20 Blood - Peripheral Anaerobic Blood Culture - Final S. aureus MRSA 08/24/18 21:15 Blood - Peripheral Aerobic Blood Culture - Final No growth in 5 days 08/24/18 21:15 Blood - Peripheral Anaerobic Blood Culture - Final No growth in 5 days Assessment and Plan - Plan This patient is a 53-year-old female with a diagnosis of diabetes mellitus, IV drug abuse, recent treatment of thoracic spine osteomyelitis/discitis who presents to the emergency department. As per documentation the patient reports that in April 2018 she was diagnosed with osteomyelitis and discitis of the thoracic spine. She had a PICC line placed and was supposed to be on antibiotic infusion until 08/31/18 however due to renal failure her vancomycin was discontinued. Since she was unable to see her infectious disease specialist until 08/27/18 she came into the emergency department to be evaluated. 08/30/18 Patient was evaluated today. She wanted to leave [facility] yesterday but is here under an ex parte and cannot leave [facility]. Psych evaluated the patient but ex parte not lifted. As per their note psych has been reconsulted to eval the patient. Follow up with their recs. Culture from bx 08/26 not growing anything. Blood cxs 08/24/18 postive 08/18 MRSA, repeat 08/28/18 negative. Continue IV antibiotics. ID following the patient. Lovenox for dvt prophylaxis. 1. Sepsis secondary to osteomyelitis/discitis of the thoracic spine, questionable endocarditis Blood cultures came back +1 of 2 for MRSA. Repeat blood cxs ordered. 2D echocardiogram shows ejection fraction of 60% mild mitral valve regurg. No vegetations. MRI of the thoracic spine shows discitis/ostium mellitus at T9-T10, no epidural abscess. CT chest shows notable masslike consolidative changes throughout both lungs. Patient is s/p bx T9 on 08/26/18, Results are pending. I will discuss the case with ID today. No neurosurgical intervention recommended for now. Repeat Imaging of T spine in 3 months as per neurosurg recs. Patient is on IV vancomycin, cefepime Continue current pain medication regimen. 2. Diabetes mellitus Labile blood sugars between 130-300, one reading in the 400s. Continue Levemir 5 units q hs. Start insulin 3 times daily pre-meals 3 units Change to low-dose insulin sliding scale Patient advised to follow the hospital's diabetic diet. 3. 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
[2018-08-30] MEDS: Vancomycin Inj 1,500 MG in Sodium Chlor 0.9% Inj 500 ML IV.SIG SCH ×2 (16:33→23:45)
--- NOTE | 2018-08-30 18:39 | P.PNID ---
Subjective Remarks: still c/o mid back pain aspiration clture negative no fever Antibiotics: vanomycin Allergies/Adverse Reactions: Allergies No Known Allergies Allergy (Verified 08/24/18 19:39) Objective Vital Signs 08/29/18 20:00 08/29/18 20:54 08/29/18 23:54 Temperature 99.1 F 98.2 F Pulse Rate 99 H 89 Respiratory Rate 18 16 Blood Pressure 98/57 L 113/55 L Pulse Oximetry 97 95 97 08/30/18 04:00 08/30/18 08:00 08/30/18 11:43 Temperature 97.7 F 98 F Pulse Rate 79 92 H Respiratory Rate 17 16 16 Blood Pressure 96/55 L 106/53 L Pulse Oximetry 92 L 96 08/30/18 12:00 08/30/18 16:00 Temperature 98.5 F 97.8 F Pulse Rate 89 99 H Respiratory Rate 16 18 Blood Pressure 113/55 L 123/55 L Pulse Oximetry 95 98 Intake & Output 08/29/18 08/30/18 08/30/18 18:59 06:59 18:59 Intake Total 1190 / 1190 450 / 450 1290 / 1290 Balance 1190 / 1190 450 / 450 1290 / 1290 Weight 60.7 kg Intake: IV 350 / 350 450 / 450 450 / 450 Maxipime Inj 2,000 MG In NS Inj 100 / 100 200 / 200 200 / 200 100 ML @ 200 mls/hr IV.SIG Q8H ROSEANNA Rx#:[id number] Vancomycin Inj 1,000 MG In NS 250 / 250 250 / 250 250 / 250 Inj 250 ML @ 250 mls/hr IV.SIG Q8H ROSEANNA Rx#:[id number] Oral 840 / 840 840 / 840 Other: # Voids 4 5 Date of Last Bowel Movement 08/27/18 08/30/18 # Bowel Movements 0 1 08/28/18 13:05 Blood - Peripheral Aerobic Blood Culture - Preliminary No growth in 2 days 08/28/18 13:05 Blood - Peripheral Anaerobic Blood Culture - Preliminary No growth in 2 days 08/28/18 13:11 Blood - Peripheral Aerobic Blood Culture - Preliminary No growth in 2 days 08/28/18 13:11 Blood - Peripheral Anaerobic Blood Culture - Preliminary No growth in 2 days 08/24/18 21:20 Blood - Peripheral Aerobic Blood Culture - Final No growth in 5 days 08/24/18 21:20 Blood - Peripheral Anaerobic Blood Culture - Final S. aureus MRSA 08/24/18 21:15 Blood - Peripheral Aerobic Blood Culture - Final No growth in 5 days 08/24/18 21:15 Blood - Peripheral Anaerobic Blood Culture - Final No growth in 5 days 08/26/18 10:40 Fluid - Other Gram Stain - Final 08/26/18 10:40 Fluid - Other Body Fluid Culture - Final No growth in 72 hours (aerobically and anaerobically ) 08/26/18 10:40 Fluid - Other Acid Fast Bacilli Smear - Final No acid fast bacilli seen 08/26/18 10:40 Fluid - Other Mycobacterial Culture - Pending Lab - Chemistry Results 08/28/18 08/29/18 08/29/18 20:06 07:59 09:30 Sodium Potassium Chloride Carbon Dioxide Anion Gap BUN Creatinine 0.61 Estimated GFR Greater than 89 POC Glucose 288 H 174 H Random Glucose Calcium Magnesium 08/29/18 08/29/18 08/29/18 13:02 17:20 21:39 Sodium Potassium Chloride Carbon Dioxide Anion Gap BUN Creatinine Estimated GFR POC Glucose 106 202 H 295 H Random Glucose Calcium Magnesium 08/30/18 08/30/18 08/30/18 07:57 08:14 12:29 Sodium 132 L Potassium 4.6 Chloride 98 Carbon Dioxide 28.6 Anion Gap 5 BUN 10 Creatinine 0.55 Estimated GFR Greater than 89 POC Glucose 158 H 130 H Random Glucose 130 H Calcium 9.1 Magnesium 1.9 08/30/18 16:35 Sodium Potassium Chloride Carbon Dioxide Anion Gap BUN Creatinine Estimated GFR POC Glucose 166 H Random Glucose Calcium Magnesium Imaging: ITS Impressions Chest X-Ray 08/24/18 20:59 CONCLUSION: Markedly abnormal chest. Considerations include inflammatory process such as septic emboli or metastatic disease. CT scan of the chest with contrast would be of benefit Chest CTA 08/24/18 21:35 CONCLUSION: 1. Multiple masslike consolidative changes throughout both lungs most suspicious for inflammatory process. 2. There is minimal AP window adenopathy. 3. Trace pleural effusion is present on the left. Thoracic Spine MRI 08/25/18 00:00 CONCLUSION: 1. Discitis/osteomyelitis at T9-10 level. 2. No evidence of an epidural abscess. These findings were called to Dr. Zarate at [address] 08/26/18 00:00 CONCLUSION: 1. Uncomplicated CT guided T9 disc aspiration, as above. Physical Exam: GENERAL: NAD SKIN: Warm and dry. HEAD: Atraumatic. Normocephalic. EYES: Pupils equal and round. No scleral icterus. No injection or drainage. ENT: No nasal bleeding or discharge. Mucous membranes pink and moist. NECK: Trachea midline. No JVD. CARDIOVASCULAR: Regular rate and rhythm. NO murmurs RESPIRATORY: No accessory muscle use. Clear to auscultation. Breath sounds equal bilaterally. GASTROINTESTINAL: Abdomen soft, non-tender, nondistended. Hepatic and splenic margins not palpable. MUSCULOSKELETAL: Extremities without clubbing, cyanosis, or edema. Back: tender to palpation in mid thoracic regions no deformities, no swelling NEUROLOGICAL: Awake and alert. No obvious cranial nerve deficits. Motor grossly within normal limits. Five out of 5 muscle strength in the arms and legs. Normal speech. PSYCHIATRIC: Appropriate mood and affect; Assessment and Plan - Plan IVDU Probable endocarditis, R sided, TV with multiple septic emboli Multiple cutaneous abscesses Diskitis, osteo T9-10 - dw Dr Barrios bx was negative, but blod clx has MRSA apparently failed treatment cont vanco dc cefepime anticipate 8 weeks of IV vancomycin dw Tavares Sr
[2018-08-30] MEDS: Insulin Detemir Inj 1,000 UNIT/10 ML Vial SQ SCH (20:54)
[2018-08-31] MEDS: Morphine Inj 4 MG/ML Vial IV.PUSH PRN ×3 (04:54→13:04)
[2018-08-31 06:04] LABS: Glomerular Filtration Rate Greater Than 89 mL/min (>89)
[2018-08-31] MEDS: Vancomycin Inj 1,500 MG in Sodium Chlor 0.9% Inj 500 ML IV.SIG SCH ×2 (08:30→16:16)
[2018-08-31] MEDS: Insulin NovoLOG Aspart Correctional Sugar Inj SQ SCH ×4 (08:30→13:11)
[2018-08-31] MEDS: Enoxaparin Inj 40 MG/0.4 ML Syringe SQ SCH (08:34)
--- NOTE | 2018-08-31 14:19 | P.PNPSY ---
Subjective Remarks: Patient was seen today for psychiatric reevaluation. Documentation was reviewed. On my psychiatric evaluation today the patient is calm, cooperative, pleasant. The patient reports that she is in a very good mood, that she is ready to be discharged, because she is about to be evicted of her apartment. Patient reports that she has not used drugs in the past with recreational purposes, but she is not a drug user. She denies to be a "drugaddict". She reports to be in a good mood, she denies symptoms of depression, anxiety, roger and psychosis. The patient is quite logical, coherent and relevant. No agitation, no aggressive behavior is observed or reported. Patient is quite future oriented, with well identified protective factor for suicidality. No paranoia, no loosening of associations, no delusions, no ideas of reference, no thought controlling present during this hospitalization. Mental Status Examination Appearance: Appropriate Consciousness: Alert Orientation: x4 Motor Activity: Normal gait Speech: Unremarkable Language: Adequate Fund of Knowledge: Adequate Attention and Concentration: Adequate Memory: Unremarkable Mood: Appropriate Affect: Appropriate Thought Process & Associations: Intact Thought Content: Appropriate Hallucination Type: None Delusion Type: None Suicidal Ideation: No Suicidal Plan: No Suicidal Intention: No Homicidal Ideation: No Homicidal Plan: No Homicidal Intention: No Insight: Adequate Judgment: Adequate Assessment and Plan - Assessment (1) Adjustment disorder Code(s): F43.20 - Adjustment disorder, unspecified Status: Acute (2) Adjustment disorder with mixed disturbance of emotions and conduct Code(s): F43.25 - Adjustment disorder with mixed disturbance of emotions and conduct Status: Acute - Plan Plan: On psychiatric evaluation the patient does not present any neuropsychiatric symptoms that require an immediate psychiatric intervention. Through longitudinal observation in the hospital she has not displayed any paranoia, no loosening of associations, no depression, no psychosis, no agitation, no aggressive behavior, she has been consistently denying suicidal and homicidal ideation, visual and auditory hallucinations. The patient does not meet criteria for involuntary psychiatric admission. There is no need of psychotropics at the moment. Extensive support, motivation, psych education provided. Smith act will be lifted. Justification for Continued Inpatient Stay: No admission is indicated.
[2018-08-31] MEDS ORDERED: Pharmacy Ordered Lab Info OTHER ONE (15:45)
--- NOTE | 2018-08-31 23:27 | P.DS ---
DS: Providers Date of admission: 08/24/18 22:35 Primary care physician: UNKNOWN Consults: 08/24/18 23:22 Consult to Infectious Diseases Routine Consulting Provider: Kia Zarate Reason for Consultation: septic emboli Notified:: Service Spoke with:: danelel Date Notified:: 08/24/18 Time Notified:: 23:27 Ordering Provider: JAYESH 08/26/18 07:05 Consult to Neurosurgery Routine Consulting Provider: Emory Cobian Reason for Consultation: T spine diskitis, osteo Notified:: Physician Spoke with:: Dr Cobian Date Notified:: 08/26/18 Time Notified:: 07:15 Ordering Provider: MONICA 08/28/18 16:57 Consult to Psychiatry Routine Consulting Provider: Garland Silva Reason for Consultation: mental capacity pt on ex parte Notified:: Service Spoke with:: EDITH Date Notified:: 08/28/18 Time Notified:: 17:03 Ordering Provider: LOIS 08/30/18 15:04 Consult to Psychiatry Routine Consulting Provider: Cecil Almanza Patient known to:: Garland Silva Reason for Consultation: Mental capacity under ex parte Psych asked for reconsult today Notified:: Service Spoke with:: EDITH Date Notified:: 08/30/18 Time Notified:: 15:08 Ordering Provider: LOIS 08/31/18 14:05 Consult to Psychiatry Routine Consulting Provider: Cecil Almanza Reason for Consultation: Psychiatry consult on 08/30/2018 recommends a repeat consultation today. Patient has Ex Parte status. Thank you. Notified:: Office Spoke with:: Suzy Date Notified:: 08/31/18 Time Notified:: 14:11 Ordering Provider: TRACY Brief History from admission: 53-year-old female with a past medical history significant for diabetes mellitus , IV drug abuse and recent treatment of thoracic spine osteomyelitis/discitis presents to the emergency department for further evaluation. The patient reports that in April 2018 she was diagnosed and treated for osteomyelitis and discitis of the thoracic spine. She believes she was treated with vancomycin. A PICC line was placed and she was supposed to be on antibiotic infusion until 08/31/18 however secondary to renal failure her vancomycin was discontinued. She was unable to see her infectious disease doctor until 08/27 because he is out of town and came to [place] for further evaluation. The patient also complains of red, painful, erythematous nodules on the left leg, right forearm and in the labial and buttock regions. She denies any fevers/ chills. Denies chest pain but endorses shortness of breath and a cough productive of thick white sputum. Reports that on Thursday her PICC line fell out. The patient reports last IV drug use was heroin yesterday. No abdominal pain. No nausea/vomiting/diarrhea. No focal neurologic deficits. DS: Diagnosis Discharge Diagnosis (1) Adjustment disorder: Status: Acute (2) Adjustment disorder with mixed disturbance of emotions and conduct: Status: Acute DS: Summary Patient was admitted due to discitis with incomplete treatment. Patient follows up with an outpatient ID physician (Dr. Krishna). Patient's blood cultures was positive on 08/24/2018 at [place]. She has been on IV abx since April 2018 but had to interrupt her treatments due to kidney complications. ID evaluated patient during this admission and recommended IV Vancomycin for MRSA bateremia. Please note that patient was admitted under Ex Parte. Psychiatry was consulted and lifted mendez act on 08/31/2018. I discussed with patient at length that it is very important to finish her treatment per ID recs. However, she politely expressed her desire to go home. I have explained that lack of treatment or inappropriate treatment can potentially be life threatening. She states that she will follow up with Dr. Krishna as soon as possible. Despite our persistent recommendations, she decided to leave AMA. However, she was always pleasant during our conversation. Time Spent with Patient Total time spent providing and/or coordinating discharge services: Less than 30 minutes Quality: VTE Deep Vein Thrombosis/Pulmonary Embolism Present on Admission: No Exam Narrative Exam Narrative: GENERAL: Alert, Oriented x 3, NAD. SKIN: Warm and dry. HEAD: Normocephalic. EYES: No scleral icterus. No injection or drainage. NECK: Supple, trachea midline. No JVD or lymphadenopathy. CARDIOVASCULAR: Regular rate and rhythm without murmurs, gallops, or rubs. RESPIRATORY: Breath sounds equal bilaterally. No accessory muscle use. GASTROINTESTINAL: Abdomen soft, non-tender, nondistended. MUSCULOSKELETAL: No cyanosis, or edema. BACK: Nontender without obvious deformity. No CVA tenderness. Results Labs on day of discharge: Labs from last 24 hours 08/31/18 08/31/18 08/31/18 15:40 13:08 09:12 Creatinine Estimated GFR POC Glucose 148 H 137 H Vancomycin Trough 23.2 H 08/31/18 04:50 Creatinine 0.50 Estimated GFR Greater than 89 POC Glucose Vancomycin Trough Preliminary micro results at discharge 08/28/18 13:05 Aerobic Blood Culture - Preliminary Blood - Peripheral No growth in 3 days Anaerobic Blood Culture - Preliminary No growth in 3 days 08/28/18 13:11 Aerobic Blood Culture - Preliminary Blood - Peripheral No growth in 3 days Anaerobic Blood Culture - Preliminary No growth in 3 days Impressions ITS Impressions Chest X-Ray 08/24/18 20:59 CONCLUSION: Markedly abnormal chest. Considerations include inflammatory process such as septic emboli or metastatic disease. CT scan of the chest with contrast would be of benefit Chest CTA 08/24/18 21:35 CONCLUSION: 1. Multiple masslike consolidative changes throughout both lungs most suspicious for inflammatory process. 2. There is minimal AP window adenopathy. 3. Trace pleural effusion is present on the left. Thoracic Spine MRI 08/25/18 00:00 CONCLUSION: 1. Discitis/osteomyelitis at T9-10 level. 2. No evidence of an epidural abscess. These findings were called to Dr. Zarate at [address] 08/26/18 00:00 CONCLUSION: 1. Uncomplicated CT guided T9 disc aspiration, as above. Discharge Plan Discharge Disposition Patient Disposition: 07 Against Medical Advice Discharge Condition Condition: Stable Discharge Order Discharge Orders: AMA Discharge (Routine); Ordered 08/28/18 Ordered By: Nohelia Pagan Physicians Team Primary Care Provider: UNKNOWN, Attending Provider: Jj Carlson Other Providers: Kia Zarate ; Emory Cobian ; Garland Silva ; Cecil Almanza Rxs /Orders / Referrals /Forms Prescriptions: Continue metformin 1,000 mg Tablet 1,000 mg PO BID RF: 0 Referrals: UNKNOWN, [Primary Care Provider] - See Instructions Status ED Status: Left Department Discharge Information Discharge Date/Time: 08/31/18 17:55
== END 2018-08-31 17:55 | disposition left against medical advice (07) | DRG 871 ==
LOC: NEPC 19:18 → NEDA 22:35 → HCIN 08-25 02:23 → N04 08-25 19:57
PROVIDERS: ADMIT Hospitalist; ATTEND Hospitalist
DX: F17.210 Nicotine dependence, cigarettes, uncomplicated; F11.10 Opioid abuse, uncomplicated; Z79.84 Long term (current) use of oral hypoglycemic drugs; A41.9 Sepsis, unspecified organism; E11.65 Type 2 diabetes mellitus with hyperglycemia; M46.44 Discitis, unspecified, thoracic region; F43.25 Adjustment disorder with mixed disturbance of emotions and conduct; I26.90 Septic pulmonary embolism without acute cor pulmonale; E87.1 Hypo-osmolality and hyponatremia; M46.24 Osteomyelitis of vertebra, thoracic region
CPT/HCPCS: 10009; 71010; 71045; 71275; 72157; 76360; 76937; 77012; 80048; 80053; 80202; 80307; 81001; 82550; 82565; 82948; 82962; 83520; 83605; 83690; 83735; 83880; 84484; 85025; 85610; 85651; 85652; 85730; 86140; 87015; 87040; 87070; 87071; 87102; 87116; 87149; 87176; 87186; 87205; 87206; 87275; 87276; 87804; 90761; 90765; 93005; 93306; 96361; 96365; 99152; 99285; A9585; J0692; J1650; J1815; J1885; J2250; J2270; J2543; J3010; J3370; J7030; J7040; J7050; Q9967